=== PATIENT | female | born 1985 | race Caucasian/White ===

== ENCOUNTER 2023-12-15 09:33 | Emergency (ER) | payer OTHER, SELFPAY ==
[2023-12-15 09:42] VITALS: BP 127/84
[2023-12-15 10:45] VITALS: BMI 24.2
[2023-12-15 10:47] VITALS: BP 130/96
[2023-12-15 11:00] VITALS: BP 140/80
--- NOTE | 2023-12-15 11:12 | ED.GENMED ---
History of Present Illness
General
Chief Complaint: Headache
Time Seen by Provider: 12/15/23 10:32
Travel History
Have you had any contact with someone who has COVID-19?: No
Do you have any symptoms of coronavirus? Fever > 100 degrees, chills, cough, shortness of breath, sore throat, loss of taste or smell, muscle aches, or headache?: No
History of Present Illness
History of Present Illness:
38-year-old female with history of anxiety, POTS, thoracic outlet syndrome, and GERD presents to the emergency department for evaluation of a litany of symptoms. Patient notes that since Thursday she has had episodes of vomiting, syncope, headaches,
increased defecation, physical feeling of trembling on the inside, hot and cold chills, sweating, irritability, word finding difficulty, confusion, 'feeling disconnected', muscle weakness, excessive fatigue, bad body odor, and a fullness in her ears
and head. She states that she has PTSD and had a 'bad weekend'. Denies any fever or sick contacts at home.
Past History
Past History
ED Past Medical History: Asthma (Sport induced), Fibromyalgia, GERD, Seizures (Pseudoseizures), Psychiatric (panic attacks, anxiety disorder, PTSD, Pleurasy), Other (pseudoseizures, headaches, Barrets esophagitis, Gastritis, Scoliosis,
Endometriosis, 'dormant' Lymes disease, chronic pelvic pain, Pyelonephritis, Hiatal hernia, Sarah, ) and Other (Thoracic outlet syndrome, Hiatal hernia, UTi, Cystitis)
ED Past Surgical History: Appendectomy, Gynecological (Laparoscopy 07/12/2014, Endometriiosis Surgery X 2) and Tonsilectomy
Social History
Tobacco: Former smoker
Alcohol: None
Drug: None
Personal:
Living: with family
Employment: Not employed
Family History
Family History: Other (states had grandparents with heart problems in their 50's)
Review of Systems
Review of Systems
Allergies reviewed?: Yes
All Other Systems: ROS reviewed and negative except as documented in HPI and ROS
Phy Exam
Physical Exam
Physical Exam:
GEN: Well appearing, NAD, WDWN
HEENT: Oral mucosa moist, no scleral icterus
Cardiac: Regular rate and rhythm, no murmurs
Lung: No respiratory distress, no tachypnea
MSK: No gross deformity or injuries
Skin: Good color, no pallor or jaundice, no rashes
Neuro: AO x3, moves all extremities freely, cranial nerves II through XII grossly intact
Psych: Calm, cooperative
Course
Orders/Labs/Results
Orders:
Orders
12/15/23 09:46
Electrocardiogram (*1) Urgent
Reason for Study: Vertigo / Dizzy
EKG- Treatment ONCE
12/15/23 11:11
0.9% Sodium Chloride 1000 ml [Nss] 1,000 ml IV BOLUS
Lorazepam [Ativan] 0.5 mg IV NOW STA
12/15/23 11:12
Test Result ONCE
12/15/23 12:13
Complete Blood Count/With Diff Urgent
Comprehensive Metabolic Panel Urgent
HCG, Serum Qualitative Screen Urgent
TSH Urgent
Urinalysis Reflex To Culture Urgent
Date Specimen was Collected: 12/15/23
Time Specimen was Collected: 11:45
12/15/23 12:15
COVID-19 Antigen Urgent
Source: Nasal Swab
Abnormal Lab Results
12/15/23
12:13
RBC 4.16 L 10^6/uL
(4.20-5.40)
MCH 32.9 H pg
(27.0-31.0)
Absolute Neuts (auto) 6.9 H 10^3/uL
(1.4-6.5)
Neutrophils % 79.6 H %
(42.2-75.2)
Lymphocytes % 15.5 L %
(20.5-51.1)
Creatinine 0.5 L mg/dL
(0.6-1.0)
Glucose 109 H mg/dl
(70-99)
12/15/23 12:13
12/15/23 12:13
Vital Signs
Initial and Last Documented VS:
Initial Vital Signs
Temp Pulse Resp BP Pulse Ox
98.2 F 77 20 127/84 99
12/15/23 09:42 12/15/23 09:42 12/15/23 09:42 12/15/23 09:42 12/15/23 09:42
Last Documented Vital Signs
Temp Pulse Resp BP Pulse Ox
98.2 F 81 16 136/72 97
12/15/23 09:42 12/15/23 13:37 12/15/23 13:37 12/15/23 13:37 12/15/23 13:37
MDM/Problems Addressed
MDM/Problems Addressed:
Patient presenting with a myriad of complaints, her workup was unremarkable, I suspect this is all anxiety driven, patient reassured
Comment
Comment:
EKG independently interpreted by me shows normal sinus rhythm at a rate of [address] changes concerning for ischemia
*Critical Care Note
Total Time (30-74mins, 75-104mins- exclusive of procedures): Not Applicable
ED Attending Note
-
Portions of this chart may have been created with voice recognition software.� Occasional wrong word or��sound alike� substitutions may have occurred due to the inherent limitations of voice recognition software.
Discharge Plan
Departure
Patient Disposition: Home (Routine Discharge)
Date of Disposition: 12/15/23
Time of Disposition: 13:02
Patient with high blood pressure during this ER visit?: No
Discharge Problem:
Persistent headaches, Night sweats, Anxiety
Instructions: Headache, Adult (DC)
Prescriptions:
No Action
omeprazole 20 mg capsule,delayed release(DR/EC)
40 mg PO DAILY
carisoprodol 350 mg tablet
350 mg PO QID
Patient Comments:
03/26/2023: last filled 03/26/2023, 90 tabs for 23 days from [facility]
Rx Instructions:
3 times a day and at bedtime
hydrocodone-acetaminophen 5-325 mg tablet
1 tab PO TID PRN (Reason: moderate pain)
Patient Comments:
03/26/2023: last filled 02/27/23, 90 tabs for 30 days from [facility]
alprazolam 0.5 mg tablet
0.5 mg PO TID PRN (Reason: anxiety)
Patient Comments:
03/26/2023: last filled 03/20/23, 84 tabs for 28 days from [facility]
diclofenac sodium 50 mg tablet,delayed release (DR/EC)
50 mg PO QID
hydroxychloroquine 200 mg tablet
200 mg PO BID
duloxetine 60 mg capsule,delayed release(DR/EC)
120 mg PO DAILY
amphetamine sulfate 10 mg tablet
10 mg PO DAILY
Patient Comments:
03/26/2023: last filled 03/23/23, 45 tabs for 30 days from [facility]
amphetamine sulfate 10 mg tablet
5 mg PO DAILY@1400
Patient Comments:
03/26/2023: last filled 03/23/23, 45 tabs for 30 days from [facility]
Rx Instructions:
1/2 tab in the afternoon
acetaminophen [Acetaminophen Extra Strength] 500 mg tablet
1,000 mg PO TID PRN (Reason: headache) 30 Days Qty: 90 0RF
prochlorperazine maleate [Compazine] 10 mg tablet
10 mg PO TID PRN (Reason: nausea/headache) Qty: 90 0RF
prednisone 10 mg tablet
10 mg PO DIRECTED Qty: 30 0RF
Rx Instructions:
50mg x 2 days, 40mg x 2 days, 30mg x 2 days, 20mg x 2 days, 10mg x 2 days
Referrals:
UNKNOWN,NO INTERVIEW [Family Provider] -
Activity Restrictions/Additional Instructions:
Follow up with your primary care doctor if symptoms persist
Interventions
Interventions:
*Risk Screen - Suicide Last Done: 12/15/23 10:45
*General Assessment Last Done: 12/15/23 10:45
*Neglect/Abuse Screening Last Done: 12/15/23 10:45
ED- Fall Risk Assessment Last Done: 12/15/23 13:37
*ED COVID-19 Vaccine History Last Done: 12/15/23 10:45
*Nursing Disposition Last Done: 12/15/23 13:37
ED- Neurological Assessment Last Done: 12/15/23 10:45
Discharge Date and Time
Discharge Date/Time: 12/15/23 13:39
[2023-12-15] MEDS: NSS 1000 IV (12:17)
[2023-12-15 12:26] LABS: % Basophils 0.3 % (0-2); % Eosinophils 0.2 % (0-6); % Immature Granulocytes 0.3 % (0-0.5); % Lymphocytes 15.5 % (20.5-51.1); % Monocytes 4.1 % (1.7-9.3); % Neutrophils 79.6 % (42.2-75.2); Absolute Lymphocytes 1.4 10^3/uL (1.2-3.4); Absolute Monocytes 0.4 10^3/uL (0.1-0.6); Absolute Neutrophils 6.9 10^3/uL (1.4-6.5); Hematocrit 38.2 % (37.0-47.0); Hemoglobin 13.7 g/dL (12.0-16.0); Mean Corp Hgb Conc. 35.9 g/dL (33.0-37.0); Mean Corpuscular Hgb 32.9 pg (27.0-31.0); Mean Corpuscular Volume 91.8 fL (81.0-99.0); Nucleated Red Blood Cells % 0 %; Platelet Count 297 10^3/uL (130-400); Red Blood Cell Count 4.16 10^6/uL (4.20-5.40); Red Cell Dist. Width 11.6 % (11.5-14.5); White Blood Cell Count 8.7 10^3/uL (4.8-10.8)
[2023-12-15 12:28] LABS: Urine Albumin Negative (Neg - Trace); Urine Bilirubin Negative (Negative); Urine Character Clear (Clear); Urine Color Straw; Urine Glucose Negative (Negative); Urine Ketone Negative (Negative); Urine Leukocyte Negative (Negative); Urine Nitrite Negative (Negative); Urine Occult Blood Negative (Negative); Urine Urobilinogen Negative (Neg - 1+); Urine pH 6.5 (5.0-9.0)
[2023-12-15 12:40] LABS: COVID-19 Antigen Negative (Negative)
[2023-12-15 12:41] LABS: ALT (SGPT) 25 U/L (0-35); AST (SGOT) 29 U/L (14-36); Albumin 4.6 g/dl (3.5-5.0); Alkaline Phosphatase 38 U/L (38-126); Blood Urea Nitrogen 9 mg/dl (7-17); Calcium 9.8 mg/dl (8.4-10.2); Carbon Dioxide 26 mmol/L (22-30); Chloride 100 mmol/L (98-107); Estimated Creatinine Clearance 117 ml/min; Glucose 109 mg/dl (70-99); Potassium 4.2 mmol/L (3.5-5.1); Sodium 137 mmol/L (135-145); Total Bilirubin 0.9 mg/dl (0.2-1.3); Total Protein 7.4 g/dl (6.3-8.2); eGFR > 60.00
[2023-12-15 12:44] LABS: HCG, Serum Qualitative Screen Negative
[2023-12-15 13:37] VITALS: BP 136/72
== END 2023-12-15 13:39 | disposition home or self-care (01) ==
LOC: EMR 09:33
PROVIDERS: Physician Assistant; EMERGENCY PHYSICIAN Emergency Medicine
DX: R51.9 Headache, unspecified (principal); R61 Generalized hyperhidrosis; F41.9 Anxiety disorder, unspecified; R11.2 Nausea with vomiting, unspecified; R55 Syncope and collapse; G90.A Postural orthostatic tachycardia syndrome [POTS]; G54.0 Brachial plexus disorders; K21.00 Gastro-esophageal reflux disease with esophagitis, without bleeding; F43.10 Post-traumatic stress disorder, unspecified; J45.909 Unspecified asthma, uncomplicated; M41.9 Scoliosis, unspecified; M79.7 Fibromyalgia; Z87.19 Personal history of other diseases of the digestive system; Z87.440 Personal history of urinary (tract) infections; Z87.891 Personal history of nicotine dependence; Z90.49 Acquired absence of other specified parts of digestive tract
CPT/HCPCS: 99283; 96360; 80053; 81003; 84443; 84703; 85025; 87811; 93005

== ENCOUNTER 2024-04-10 18:45 | Emergency (ER) | payer OTHER, SELFPAY ==
[2024-04-10 18:50] VITALS: BP 144/92; BMI 25.0
[2024-04-10 19:15] LABS: % Basophils 0.3 % (0-2); % Eosinophils 0.2 % (0-6); % Immature Granulocytes 0.7 % (0-0.5); % Lymphocytes 19.4 % (20.5-51.1); % Monocytes 4.3 % (1.7-9.3); % Neutrophils 75.1 % (42.2-75.2); Absolute Immature Granulocytes 0.1 10^3/uL (0-0.05); Absolute Lymphocytes 1.9 10^3/uL (1.2-3.4); Absolute Monocytes 0.4 10^3/uL (0.1-0.6); Absolute Neutrophils 7.4 10^3/uL (1.4-6.5); Hematocrit 38.4 % (37.0-47.0); Hemoglobin 13.3 g/dL (12.0-16.0); Mean Corp Hgb Conc. 34.6 g/dL (33.0-37.0); Mean Corpuscular Hgb 32.3 pg (27.0-31.0); Mean Corpuscular Volume 93.2 fL (81.0-99.0); Mean Platelet Volume 8.1 fL (7.4-10.4); Nucleated Red Blood Cells % 0 %; Platelet Count 401 10^3/uL (130-400); Red Blood Cell Count 4.12 10^6/uL (4.20-5.40); White Blood Cell Count 9.9 10^3/uL (4.8-10.8)
[2024-04-10 19:16] LABS: Urine Albumin Negative (Neg - Trace); Urine Bilirubin Negative (Negative); Urine Character Clear (Clear); Urine Color Straw; Urine Glucose Negative (Negative); Urine Ketone Negative (Negative); Urine Leukocyte Negative (Negative); Urine Nitrite Negative (Negative); Urine Occult Blood Negative (Negative); Urine Urobilinogen Negative (Neg - 1+)
[2024-04-10 19:26] LABS: HCG, Serum Qualitative Screen Negative
[2024-04-10 19:29] LABS: ALT (SGPT) 45 U/L (0-35); AST (SGOT) 20 U/L (14-36); Albumin 4.4 g/dl (3.5-5.0); Alkaline Phosphatase 37 U/L (38-126); Blood Urea Nitrogen 13 mg/dl (7-17); Carbon Dioxide 35 mmol/L (22-30); Chloride 97 mmol/L (98-107); Estimated Creatinine Clearance 117 ml/min; Glucose 114 mg/dl (70-99); Lipase 205 U/L (23-300); Potassium 4.8 mmol/L (3.5-5.1); Sodium 137 mmol/L (135-145); Total Bilirubin 0.2 mg/dl (0.2-1.3); eGFR > 60.00
[2024-04-10 19:31] VITALS: BP 126/77
[2024-04-10 19:40] LABS: Troponin I < 0.012 ng/ml
[2024-04-10 20:00] VITALS: BP 127/79
--- NOTE | 2024-04-10 20:21 | ED.GENMED ---
History of Present Illness
General
Chief Complaint: Urinary Symptoms
Source: patient
Exam Limitations: none
Time Seen by Provider: 04/10/24 19:22
Travel History
Have you had any contact with someone who has COVID-19?: No
Do you have any symptoms of coronavirus? Fever > 100 degrees, chills, cough, shortness of breath, sore throat, loss of taste or smell, muscle aches, or headache?: No
History of Present Illness
History of Present Illness:
This is a 38 year old female that comes in with multiple complaints. States that she has cystitis and she can't tell sometimes between her Cystitis or a Lupus flare. State that today she couldn't walk up the stairs as this caused her to be SOB.
States that she was sweating and she felt she was having a hard time emptying her bladder. States that she was nauseated but not vomiting. States that she has upper chest pain into the right shoulder with the SOB, headache and slight dizziness.
Denies any fever, chills, vomiting, diarrhea, urinary burning.
Past History
Past History
ED Past Medical History: Asthma (Sport induced), Fibromyalgia, GERD, Hypercholesterolemia, Seizures (Pseudoseizures), Psychiatric (panic attacks, anxiety disorder, PTSD,), Other (pseudoseizures, headaches, Barretts esophagitis, Gastritis, Scoliosis,
Endometriosis, 'dormant' Lyme's disease, chronic pelvic pain, Pyelonephritis, Hiatal hernia, Sarah, ) and Other (Thoracic outlet syndrome, Hiatal hernia, UTi, Cystitis, Optic neuritis, Pleurisy, Lupus)
ED Past Surgical History: Appendectomy, Gynecological (Laparoscopy 07/12/2014, Endometriiosis Surgery X 2), Tonsilectomy and Other (Sinus surgery)
Social History
Tobacco: Former smoker
Alcohol: None
Drug: None
Personal:
Living: with family
Employment: Not employed
Family History
Family History: Other (states had grandparents with heart problems in their 50's)
Review of Systems
Review of Systems
All Other Systems: ROS reviewed and negative except as documented in HPI and ROS
Constitutional: Reports no symptoms; Denies fever or chills
EENT: Reports no symptoms
Respiratory: Reports trouble breathing; Denies cough
Cardiac: Reports chest pain
ABD/GI: Reports abdominal pain and nausea; Denies vomiting or diarrhea
: Reports no symptoms; Denies dysuria, frequency or urgency
Musculoskeletal: Reports no symptoms
Skin: Reports no symptoms
Neurological: Reports dizzy (Slight) and headache
Psychiatric: Reports no symptoms
Phy Exam
General Physical Exam
General Presentation: mild distress
General age: appears stated age
General Skin: warm and dry
General Habitus: normal
General Mental: alert
General Hydration: appears well hydrated
ENT Exam
ENT Exam: TM's normal, pharynx normal and neck supple
Eye Exam
Eye Exam: EOMI
Cardiovascular Exam
Cardiovascular Exam: regular rate/rhythm, no edema, no murmur and normal peripheral pulses
Pulmonary Exam
Pulmonary Exam: lungs clear, no respiratory distress, no rales, chest non tender, no crackles, no rhonchi, no wheezing and no cough
Gastrointestinal Exam
Gastrointestinal Exam: normal bowel sounds, soft, no organomegaly, no pulsatile mass, non distended and tender (Slight abd tenderness with palpation generalized)
Musculoskeletal Exam
Musculoskeletal Exam: full ROM and no edema
Skin Exam
Skin Exam: normal color, warm/dry, no rash and no petechia
Psychiatric Exam
Psychiatric Exam: normal mood/affect
Course
Orders/Labs/Results
Orders:
Orders
04/10/24 18:53
Electrocardiogram (*1) Urgent
Reason for Study: Abdominal Pain
04/10/24 18:54
EKG- Treatment ONCE
Test Result ONCE
04/10/24 18:58
Urinalysis Reflex To Culture Urgent
Date Specimen was Collected: 04/10/24
Time Specimen was Collected: 18:53
04/10/24 19:07
Complete Blood Count/With Diff Urgent
Comprehensive Metabolic Panel Urgent
HCG, Serum Qualitative Screen Urgent
Lipase Urgent
Troponin I Urgent
04/10/24 20:19
0.9% Sodium Chloride 1000 ml [Nss] 1,000 ml IV BOLUS
Acetaminophen [Tylenol] 1,000 mg PO NOW STA
Ketorolac [Toradol] 30 mg IV NOW STA
Ondansetron Injectable [Zofran] 4 mg IV NOW STA
04/10/24 20:20
CR Chest - 2 Views Urgent
Comment:
Reason For Exam: SOB
04/10/24 20:23
Bladder Scan- Treatment ONCE
Comment: after patient voids
04/10/24 20:[address] Non Medication Order As Directed
Physician Order: Bladder scan after patient voids
Above order entered?: Yes
Abnormal Lab Results
04/10/24
19:07
RBC 4.12 L 10^6/uL
(4.20-5.40)
MCH 32.3 H pg
(27.0-31.0)
Plt Count 401 H 10^3/uL
(130-400)
Abs Immat Gran (auto) 0.1 H 10^3/uL
(0-0.05)
Absolute Neuts (auto) 7.4 H 10^3/uL
(1.4-6.5)
Immature Gran % 0.7 H %
(0-0.5)
Lymphocytes % 19.4 L %
(20.5-51.1)
Chloride 97 L mmol/L
(98-107)
Carbon Dioxide 35 H mmol/L
(22-30)
Glucose 114 H mg/dl
(70-99)
ALT 45 H U/L
(0-35)
Alkaline Phosphatase 37 L U/L
(38-126)
04/10/24 19:07
04/10/24 19:07
Carbon dioxide elevation. Glucose nonfasting. ALT mildly elevated. Urine negative for infection. Lipase normal at 205, HCG negative.
Vital Signs
Initial and Last Documented VS:
Initial Vital Signs
Temp Pulse Resp BP Pulse Ox
98.2 F 94 16 144/92 100
04/10/24 18:50 04/10/24 18:50 04/10/24 18:50 04/10/24 18:50 04/10/24 18:50
Last Documented Vital Signs
Temp Pulse Resp BP Pulse Ox
98.2 F 94 16 144/92 100
04/10/24 18:50 04/10/24 18:50 04/10/24 18:50 04/10/24 18:50 04/10/24 18:50
Hot Box Checker consulted with Physician
Hot Box Checker consulted with physician?: Yes
Name of Physician Consulted: Dr. Nuñez
MDM/Problems Addressed
Differential Diagnosis Includes:
Migraine, gastritis,
MDM/Problems Addressed:
This is a 38 year old female that comes in with multiple complaints. States that she was SOB going up the steps today and had upper right sided chest pain. States that she has abd pain with nausea, headache and dizziness.
Will check labs, Chest x-ray urine, Give IV fluids.
Back into see patient. Patient states that she is not feeling much better. Explained that her chest x-ray is normal, urine is negative for infection and her blood work does show a slight Elevation of C02. Encouraged patient to take deep breaths to
help blow off the C02, increase her water intake to 8-8oz glasses daily. Follow up with the family doctor. Return with any concerns.
Chronic conditions affecting care:
Lupus, Cystitis
Acute Exacerbation and/or Progression of Chronic Illness:
Lupus, Cystitis
*Radiology
Radiology exam reviewed: radiology read reviewed (Chest-No acute disease of the chest. )
*Pulse Oximetry
Patient hypoxic: no
*EKG
Interpreted by ED Provider?: Yes
Heart Rate: 81
Rate: normal
Rhythm: sinus
[place]: normal axis
Interval: normal interval
QRS Pattern: normal QRS
Ischemia: no ischemia
*Warehouse Team Member Interpretation
Rate: Warehouse Team Member- N/A
*Critical Care Note
Total Time (30-74mins, 75-104mins- exclusive of procedures): Not Applicable
ED Attending Note
-
Portions of this chart may have been created with voice recognition software.� Occasional wrong word or��sound alike� substitutions may have occurred due to the inherent limitations of voice recognition software.
Discharge Plan
Departure
Patient Disposition: Home (Routine Discharge)
Date of Disposition: 04/10/24
Time of Disposition: 22:09
Patient with high blood pressure during this ER visit?: Yes
Condition: Good
Covid-19: Not Applicable
Discharge Problem:
SOB (shortness of breath)
Instructions: Shortness of Breath, Adult ED, BLOOD PRESSURE
Prescriptions:
No Action
omeprazole 20 mg capsule,delayed release(DR/EC)
40 mg PO DAILY
carisoprodol 350 mg tablet
350 mg PO QID
Patient Comments:
03/26/2023: last filled 03/26/2023, 90 tabs for 23 days from [facility]
Rx Instructions:
3 times a day and at bedtime
hydrocodone-acetaminophen 5-325 mg tablet
1 tab PO TID PRN (Reason: moderate pain)
Patient Comments:
03/26/2023: last filled 02/27/23, 90 tabs for 30 days from [facility]
alprazolam 0.5 mg tablet
0.5 mg PO TID PRN (Reason: anxiety)
Patient Comments:
03/26/2023: last filled 03/20/23, 84 tabs for 28 days from [facility]
diclofenac sodium 50 mg tablet,delayed release (DR/EC)
50 mg PO QID
hydroxychloroquine 200 mg tablet
200 mg PO BID
duloxetine 60 mg capsule,delayed release(DR/EC)
120 mg PO DAILY
amphetamine sulfate 10 mg tablet
10 mg PO DAILY
Patient Comments:
03/26/2023: last filled 03/23/23, 45 tabs for 30 days from [facility]
amphetamine sulfate 10 mg tablet
5 mg PO DAILY@1400
Patient Comments:
03/26/2023: last filled 03/23/23, 45 tabs for 30 days from [facility]
Rx Instructions:
1/2 tab in the afternoon
acetaminophen [Acetaminophen Extra Strength] 500 mg tablet
1,000 mg PO TID PRN (Reason: headache) 30 Days Qty: 90 0RF
prochlorperazine maleate [Compazine] 10 mg tablet
10 mg PO TID PRN (Reason: nausea/headache) Qty: 90 0RF
prednisone 10 mg tablet
10 mg PO DIRECTED Qty: 30 0RF
Rx Instructions:
50mg x 2 days, 40mg x 2 days, 30mg x 2 days, 20mg x 2 days, 10mg x 2 days
Referrals:
Janey Collins, DO [Family Provider] -
Activity Restrictions/Additional Instructions:
As discussed, your chest X-ray is normal. Your urine is negative for infection. Your Troponin is normal. Please increase your water intake to 8-8oz glasses daily. Please take deep breaths to help open up the air ways. Follow up with the family
doctor for recheck. Tylenol 1000mg every 6 hours for headache pain and alternate with Ibuprofen 600mg every 6 hours with food for pain. IF YOU HAVE ANY OTHER CONCERNS PLEASE RETURN TO THE EMERGENCY ROOM .
Interventions
Interventions:
*Risk Screen - Suicide Last Done: 04/10/24 18:50
*Neglect/Abuse Screening Last Done: 04/10/24 18:50
ED- Fall Risk Assessment Last Done: 04/10/24 18:50
Discharge Date and Time
Print Language: FRISIAN
[2024-04-10] MEDS: NSS 1000 IV (20:52)
[2024-04-10] MEDS: TORADOL 30 MG IV (20:53)
[2024-04-10] MEDS: TYLENOL 1000 MG PO (20:53)
[2024-04-10] MEDS: ZOFRAN 4 MG IV (20:53)
[2024-04-10 21:30] VITALS: BP 117/81
== END 2024-04-10 22:45 | disposition home or self-care (01) ==
LOC: EMR 18:45
PROVIDERS: Emergency Medicine; EMERGENCY PHYSICIAN Student in an Organized Health Care Education/Training Program; FAMILY PHYSICIAN Internal Medicine
DX: R06.02 Shortness of breath (principal); J45.909 Unspecified asthma, uncomplicated; M79.7 Fibromyalgia; K21.9 Gastro-esophageal reflux disease without esophagitis; E78.00 Pure hypercholesterolemia, unspecified; G40.909 Epilepsy, unspecified, not intractable, without status epilepticus; F41.9 Anxiety disorder, unspecified; M41.9 Scoliosis, unspecified; G54.0 Brachial plexus disorders; Z87.19 Personal history of other diseases of the digestive system; Z87.440 Personal history of urinary (tract) infections; Z87.891 Personal history of nicotine dependence; Z90.49 Acquired absence of other specified parts of digestive tract
CPT/HCPCS: 99283; 96374; 96375; 96361; 71046; 80053; 81003; 83690; 84484; 84703; 85025; 93005

== ENCOUNTER 2024-05-31 15:41 | Emergency (ER) | payer OTHER, SELFPAY ==
[2024-05-31 15:47] VITALS: BP 125/87
--- NOTE | 2024-05-31 16:48 | ED.GENMED ---
History of Present Illness
General
Chief Complaint: Vaginal Bleeding
Source: patient
Exam Limitations: none
Time Seen by Provider: 05/31/24 16:47
Nursing documentation reviewed up to this point in time: agreed with
History of Present Illness
History of Present Illness:
39-year-old female with history of PTSD, endometriosis, Barlow's esophagus, GERD, POTS, thoracic outlet syndrome, migraines, lupus Premenstrual dysphoric disorder (PMDD) presents with pain across her lower abdomen and low back pain that she
describes as feeling like she is in labor. She states the pain radiates down both her legs. States she feels like she's in labor and 'like I'm going to poop out my uterus.' contacted her CEMENT WORKER doctor at [place], had a transvaginal US this a.m. and
received report from her CEMENT WORKER that it was 'fine.'
States she had 2 episodes diarrhea last night, and 3 episodes today. States she's on antibiotic for past month but doesn't know the name. Last stool 12 p.m.
Under care of pain management at [facility]. Uses Diclofenac, Vicodin 5 mg, Soma and takes Cymbalta.
Denies fever/chills. Has had nausea and states she vomited once today.
States she started vaginal bleeding 4 days ago, 'a little early for my period,' minimal bleeding since then
Past History
Past History
ED Past Medical History: Asthma (Sport induced), Fibromyalgia, GERD, Hypercholesterolemia, Seizures (Pseudoseizures), Psychiatric (panic attacks, anxiety disorder, PTSD,), Other (pseudoseizures, headaches, Barretts esophagitis, Gastritis, Scoliosis,
Endometriosis, 'dormant' Lyme's disease, chronic pelvic pain, Pyelonephritis, Hiatal hernia, Sarah, ) and Other (Thoracic outlet syndrome, Hiatal hernia, UTi, Cystitis, Optic neuritis, Pleurisy, Lupus)
ED Past Surgical History: Appendectomy, Gynecological (Laparoscopy 07/12/2014, Endometriiosis Surgery X 2), Tonsilectomy and Other (Sinus surgery)
Social History
Tobacco: Former smoker
Alcohol: None
Drug: None
Personal:
Living: with family
Employment: Not employed
Family History
Family History: Other (states had grandparents with heart problems in their 50's)
Review of Systems
Review of Systems
Allergies reviewed?: Yes
All Other Systems: ROS reviewed and negative except as documented in HPI and ROS
Constitutional: Denies fever
Respiratory: Denies trouble breathing
Cardiac: Denies chest pain
ABD/GI: Reports abdominal pain, nausea, vomiting and diarrhea; Denies bloody stools or black stools
: Denies dysuria, frequency, difficulty voiding or urgency
Musculoskeletal: Reports no symptoms
Skin: Reports no symptoms
Neurological: Reports no symptoms
Phy Exam
Physical Exam
Physical Exam:
GENERAL: Pacing room, leaning over table, due to abdominal pain radiating down both legs. A&Ox3.
CONSTITUTIONAL: Afebrile.
EYES: PERRL, conjunctivae normal
ENMT: moist mucus membranes, Pharynx nl
RESPIRATORY: Regular respirations, nonlabored, lungs clear.
CARDIOVASCULAR: Regular rate and rhythm, no murmurs, no rubs.
GI: Soft, nontender, normal BS
MUSCULOSKELETAL: Moves with ease. Ambulating around room without difficulty. Well perfused.
SKIN: Warm, dry, pink
PSYCH: Anxious mood and affect. Well kept, interactive and appropriate
NEUROLOGIC: Awake, alert and oriented. No focal neurological deficits
Course
Orders/Labs/Results
Orders:
Orders
05/31/24 16:39
Test Result ONCE
05/31/24 16:46
Complete Blood Count/With Diff Urgent
Comprehensive Metabolic Panel Urgent
HCG, Serum Qualitative Screen Urgent
Urinalysis Reflex To Culture Urgent
Date Specimen was Collected: 05/31/24
Time Specimen was Collected: 16:39
05/31/24 17:25
Iohexol [Omnipaque] See Protocol PO NOW STA
05/31/24 17:26
CT Abd/pel W Iv And Oral Contr Urgent
Comment:
Reason For Exam: generalized abd pain
Ketorolac [Toradol] 15 mg IV NOW STA
05/31/24 17:39
Ondansetron Injectable [Zofran] 4 mg .ROUTE .STK-MED ONE
Ondansetron Injectable [Zofran] 4 mg IV NOW STA
05/31/24 19:21
Bedside Glucose- Treatment ONCE
Abnormal Lab Results
05/31/24
16:46
RBC 4.06 L 10^6/uL
(4.20-5.40)
MCH 33.0 H pg
(27.0-31.0)
Absolute Monos (auto) 0.7 H 10^3/uL
(0.1-0.6)
Monocytes % 9.8 H %
(1.7-9.3)
Glucose 66 L mg/dl
(70-99)
05/31/24 16:46
05/31/24 16:46
Vital Signs
Initial and Last Documented VS:
Initial Vital Signs
Temp Pulse Resp BP Pulse Ox
98.0 F 104 20 125/87 98
05/31/24 15:47 05/31/24 15:47 05/31/24 15:47 05/31/24 15:47 05/31/24 15:47
Last Documented Vital Signs
Temp Pulse Resp BP Pulse Ox
98.0 F 70 20 114/78 99
05/31/24 15:47 05/31/24 18:53 05/31/24 20:00 05/31/24 20:00 05/31/24 20:00
MDM/Problems Addressed
Differential Diagnosis Includes:
Endometriosis, colitis, diverticulitis, UTI, uterine fibroid., kidney stone
MDM/Problems Addressed:
39-year-old female with history of PTSD, endometriosis, Barlow's esophagus, GERD, POTS, thoracic outlet syndrome, migraines, lupus Premenstrual dysphoric disorder (PMDD) presents with pain across her lower abdomen and low back pain that she
describes as feeling like she is in labor. She states the pain radiates down both her legs. States she feels like she's in labor and 'like I'm going to poop out my uterus.' contacted her CEMENT WORKER doctor at [place], had a transvaginal US this a.m. and
received report from her CEMENT WORKER that it was 'fine.'
States she had 2 episodes diarrhea last night, and 3 episodes today. Last stool 12 p.m. States she's on Minocycline 100mg q12h. for past month she states for her Lupus.
Under care of pain management at [facility]. Uses Diclofenac, Vicodin 5 mg, Soma and takes Cymbalta.
Denies fever/chills. Has had nausea and states she vomited once today.
States she started vaginal bleeding 4 days ago, 'a little early for my period,' minimal bleeding since then
Pt OOB leaning forward on bedside table she states due to pain.
Although she is saying significant lower abdominal and low back pain, she denies pain with deep palpation to abdomen
5:30 PM
Voiced concern for a kidney stone, or maybe it's something with my bowels. Not likely kidney stone pain is bilateral and U/A is neg
CBC normal
CMP normal
HCG neg
Informed of normal labs
She's had numerous imaging studies here the years and most likely at other places too.
Still pacing and rubbing her abdomen now says: 'I wonder if it's something in my bowels.?'
Explained the risk of developing radiation induced malignancy due to having numerous imaging over the years. 'well how are we going to find out what's wrong?' She wants to proceed with CT scan
8:00 p.m.:
Ct abd pelvis with IV and oral contrast: Radiology report read: No CT evidence for an acute process in the abdomen or pelvis.
Patient informed of normal workup here
She is lying in bed appearing comfortable, she states her abdominal pain is much better, she has spoken with her CEMENT WORKER doctor while she was here and she will follow-up with her CEMENT WORKER doc
*Critical Care Note
Total Time (30-74mins, 75-104mins- exclusive of procedures): Not Applicable
ED Attending Note
-
Portions of this chart may have been created with voice recognition software.� Occasional wrong word or��sound alike� substitutions may have occurred due to the inherent limitations of voice recognition software.
Discharge Plan
Departure
Patient Disposition: Home (Routine Discharge)
Date of Disposition: 05/31/24
Time of Disposition: 20:12
Patient with high blood pressure during this ER visit?: No
Condition: Good
Discharge Problem:
Abdominal pain
Instructions: Abdominal Pain, Adult ED
Prescriptions:
No Action
omeprazole 20 mg capsule,delayed release(DR/EC)
40 mg PO DAILY
carisoprodol 350 mg tablet
350 mg PO QID
Patient Comments:
03/26/2023: last filled 03/26/2023, 90 tabs for 23 days from [facility]
Rx Instructions:
3 times a day and at bedtime
hydrocodone-acetaminophen 5-325 mg tablet
1 tab PO TID PRN (Reason: moderate pain)
Patient Comments:
03/26/2023: last filled 02/27/23, 90 tabs for 30 days from [facility]
diclofenac sodium 50 mg tablet,delayed release (DR/EC)
50 mg PO TID
duloxetine 60 mg capsule,delayed release(DR/EC)
60 mg PO DAILY
amphetamine sulfate 10 mg tablet
10 mg PO DAILY
Patient Comments:
03/26/2023: last filled 03/23/23, 45 tabs for 30 days from [facility]
amphetamine sulfate 10 mg tablet
5 mg PO DAILY@1400
Patient Comments:
03/26/2023: last filled 03/23/23, 45 tabs for 30 days from [facility]
Rx Instructions:
1/2 tab in the afternoon
acetaminophen [Acetaminophen Extra Strength] 500 mg tablet
1,000 mg PO TID PRN (Reason: headache) 30 Days Qty: 90 0RF
prednisone 10 mg tablet
10 mg PO DIRECTED Qty: 30 0RF
Rx Instructions:
50mg x 2 days, 40mg x 2 days, 30mg x 2 days, 20mg x 2 days, 10mg x 2 days
minocycline 100 mg Capsule
100 mg PO BID
Referrals:
Your, CEMENT WORKER doctor [Other] - Call in 1-3 days for appt
Janey Collins, DO [Family Provider] - As needed
Activity Restrictions/Additional Instructions:
As we discussed, nothing in your workup here today shows anything worrisome.
Follow up with your CEMENT WORKER doctor as you discussed with her
Interventions
Interventions:
*Risk Screen - Suicide Last Done: 05/31/24 16:54
*General Assessment Last Done: 05/31/24 19:15
*Neglect/Abuse Screening Last Done: 05/31/24 16:54
ED- Fall Risk Assessment Last Done: 05/31/24 19:18
*ED COVID-19 Vaccine History Last Done: 05/31/24 19:15
*Nursing Disposition Last Done: 05/31/24 20:45
ED-Female Genitourinary Assessment Last Done: 05/31/24 19:18
Discharge Date and Time
Discharge Date/Time: 05/31/24 20:46
Print Language: BAHRAINI
[2024-05-31 16:59] LABS: % Eosinophils 2.2 % (0-6); % Immature Granulocytes 0.3 % (0-0.5); % Lymphocytes 35.4 % (20.5-51.1); % Monocytes 9.8 % (1.7-9.3); % Neutrophils 51.3 % (42.2-75.2); Absolute Basophils 0.1 10^3/uL (0-0.2); Absolute Eosinophils 0.2 10^3/uL (0-0.7); Absolute Lymphocytes 2.4 10^3/uL (1.2-3.4); Absolute Monocytes 0.7 10^3/uL (0.1-0.6); Absolute Neutrophils 3.5 10^3/uL (1.4-6.5); Hematocrit 38.3 % (37.0-47.0); Hemoglobin 13.4 g/dL (12.0-16.0); Mean Corpuscular Volume 94.3 fL (81.0-99.0); Mean Platelet Volume 9.1 fL (7.4-10.4); Nucleated Red Blood Cells % 0 %; Platelet Count 337 10^3/uL (130-400); Red Blood Cell Count 4.06 10^6/uL (4.20-5.40); Red Cell Dist. Width 11.7 % (11.5-14.5); White Blood Cell Count 6.8 10^3/uL (4.8-10.8)
[2024-05-31 17:13] LABS: HCG, Serum Qualitative Screen Negative; Urine Albumin Negative (Neg - Trace); Urine Bilirubin Negative (Negative); Urine Character Clear (Clear); Urine Color Yellow; Urine Glucose Negative (Negative); Urine Ketone Negative (Negative); Urine Leukocyte Negative (Negative); Urine Nitrite Negative (Negative); Urine Occult Blood Negative (Negative); Urine Urobilinogen Negative (Neg - 1+)
[2024-05-31 17:16] LABS: ALT (SGPT) 21 U/L (0-35); AST (SGOT) 30 U/L (14-36); Albumin 4.7 g/dl (3.5-5.0); Alkaline Phosphatase 47 U/L (38-126); Blood Urea Nitrogen 13 mg/dl (7-17); Calcium 9.8 mg/dl (8.4-10.2); Carbon Dioxide 24 mmol/L (22-30); Chloride 104 mmol/L (98-107); Glucose 66 mg/dl (70-99); Potassium 4.4 mmol/L (3.5-5.1); Sodium 138 mmol/L (135-145); Total Bilirubin 0.4 mg/dl (0.2-1.3); Total Protein 7.3 g/dl (6.3-8.2); eGFR > 60.00
[2024-05-31] MEDS: OMNIPAQUE 50 ML PO (17:31)
[2024-05-31] MEDS: TORADOL 15 MG IV (17:32)
[2024-05-31] MEDS: ZOFRAN 4 MG IV (17:40)
[2024-05-31 18:53] VITALS: BP 107/80
[2024-05-31 18:56] VITALS: BMI 24.2
[2024-05-31 19:10] VITALS: BP 117/76
[2024-05-31 19:26] LABS: Glucose - Point of Care 78 mg/dl (70-99)
[2024-05-31 19:56] VITALS: BP 115/75
[2024-05-31 20:00] VITALS: BP 114/78
== END 2024-05-31 20:46 | disposition home or self-care (01) ==
LOC: EMR 15:41
PROVIDERS: EMERGENCY PHYSICIAN Emergency Medicine; FAMILY PHYSICIAN Internal Medicine
DX: R10.30 Lower abdominal pain, unspecified (principal); F43.10 Post-traumatic stress disorder, unspecified; F32.81 Premenstrual dysphoric disorder; E78.00 Pure hypercholesterolemia, unspecified; Z87.891 Personal history of nicotine dependence
CPT/HCPCS: 99285; 96374; 96375; 74177; 80053; 81003; 82962; 84703; 85025; Q9967

== ENCOUNTER 2024-06-10 14:48 | Emergency (ER) | payer OTHER, SELFPAY ==
[2024-06-10 15:03] VITALS: BP 156/89
[2024-06-10 15:43] LABS: % Basophils 0.9 % (0-2); % Eosinophils 2.5 % (0-6); % Immature Granulocytes 0.1 % (0-0.5); % Lymphocytes 40.5 % (20.5-51.1); % Monocytes 9.1 % (1.7-9.3); % Neutrophils 46.9 % (42.2-75.2); Absolute Basophils 0.1 10^3/uL (0-0.2); Absolute Eosinophils 0.2 10^3/uL (0-0.7); Absolute Lymphocytes 3.2 10^3/uL (1.2-3.4); Absolute Monocytes 0.7 10^3/uL (0.1-0.6); Absolute Neutrophils 3.7 10^3/uL (1.4-6.5); Hematocrit 41.6 % (37.0-47.0); Hemoglobin 14.2 g/dL (12.0-16.0); Mean Corp Hgb Conc. 34.1 g/dL (33.0-37.0); Mean Corpuscular Hgb 32.1 pg (27.0-31.0); Mean Corpuscular Volume 93.9 fL (81.0-99.0); Mean Platelet Volume 9.1 fL (7.4-10.4); Nucleated Red Blood Cells % 0 %; Platelet Count 417 10^3/uL (130-400); Red Blood Cell Count 4.43 10^6/uL (4.20-5.40); Red Cell Dist. Width 11.9 % (11.5-14.5)
[2024-06-10 15:47] LABS: ALT (SGPT) 20 U/L (0-35); AST (SGOT) 22 U/L (14-36); Albumin 5.1 g/dl (3.5-5.0); Alkaline Phosphatase 45 U/L (38-126); Blood Urea Nitrogen 13 mg/dl (7-17); Calcium 9.6 mg/dl (8.4-10.2); Carbon Dioxide 26 mmol/L (22-30); Chloride 102 mmol/L (98-107); Glucose 99 mg/dl (70-99); Potassium 4.9 mmol/L (3.5-5.1); Sodium 138 mmol/L (135-145); Total Bilirubin 0.5 mg/dl (0.2-1.3); Total Protein 7.7 g/dl (6.3-8.2); eGFR > 60.00
[2024-06-10 17:50] VITALS: BP 148/88
--- NOTE | 2024-06-10 17:59 | ED.GENMED ---
Addendum entered and electronically signed by James Wesley DO 06/10/24 21:30:
s/o pending arterial studies
studies neg per vascular sx
dw patient
she has chronic leg pain, chronic abd pain
apparently has had pseudoseizures, pots, endometriosis
PDMP noted
I see no indication for admission
Original Note:
History of Present Illness
General
Chief Complaint: Musculo-Skeletal Complaint
Time Seen by Provider: 06/10/24 17:40
History of Present Illness
History of Present Illness:
Patient is a 39-year-old woman with history of PTSD, endometriosis, GERD esophagus, POTS, lupus presenting to the emergency department with leg pain. Patient states that she was seen here last week for belly pain and back pain and was sent home
without a diagnosis. Per chart review it appears that patient had a full workup done including blood work urine CT scans. She states that the pain is now worse in her entire left leg. Denies any recent trauma. She states that it is throughout
the anterior and posterior leg. It is worse with ambulation. She does state that sometimes the leg appears discolored especially in the foot. This does not feel like a typical lupus flare. She denies any numbness tingling. No weakness. Any
movement makes the pain worse. No rashes. No tick bites. She has been ambulating. No fevers or chills. No urinary symptoms. No back pain. No belly pain. She has been taking Vicodin at home.
Past History
Past History
ED Past Medical History: Asthma (Sport induced), Fibromyalgia, GERD, Hypercholesterolemia, Seizures (Pseudoseizures), Psychiatric (panic attacks, anxiety disorder, PTSD,), Other (pseudoseizures, headaches, Barretts esophagitis, Gastritis, Scoliosis,
Endometriosis, 'dormant' Lyme's disease, chronic pelvic pain, Pyelonephritis, Hiatal hernia, Sarah, ) and Other (Thoracic outlet syndrome, Hiatal hernia, UTi, Cystitis, Optic neuritis, Pleurisy, Lupus)
ED Past Surgical History: Appendectomy, Gynecological (Laparoscopy 07/12/2014, Endometriiosis Surgery X 2), Tonsilectomy and Other (Sinus surgery)
Social History
Tobacco: Former smoker
Alcohol: None
Drug: None
Personal:
Living: with family
Employment: Not employed
Family History
Family History: Other (states had grandparents with heart problems in their 50's)
Phy Exam
Physical Exam
Physical Exam:
GENERAL: Upset from pain
HEENT: normocephalic, extraocular movements intact, moist oral mucosa
NECK: normal inspection
RESPIRATORY: no respiratory distress, clear to auscultation bilaterally
CARDIOVASCULAR: regular rate and rhythm
ABDOMEN/: soft, non-distended, non-tender to palpation, no rebound or guarding
EXTREMITIES: Left lower extremity diffusely tender, no obvious discoloration, peripheral pulses intact, normal cap refill, strength limited secondary to pain, no signs of trauma, compartments soft
NEUROLOGIC: awake and alert, moves all extremities
SKIN: warm
Course
Orders/Labs/Results
Orders:
Orders
06/10/24 15:23
Complete Blood Count/With Diff Urgent
Comprehensive Metabolic Panel Urgent
Creatine Phosphokinase Urgent
Comment: ADD ON
Lyme Progressive Urgent
06/10/24 17:56
US Periph Art LOWER Ext w CUCO Urgent
Comment:
Reason For Exam: claudiation pain, 'pop' behind knee
06/10/24 17:57
Add On- LAB Urgent
Tests Added?: CK
Hydrocodone 5/APAP 325 [[place] 5/325] 1 tablet PO NOW STA
Abnormal Lab Results
06/10/24
15:23
MCH 32.1 H pg
(27.0-31.0)
Plt Count 417 H 10^3/uL
(130-400)
Absolute Monos (auto) 0.7 H 10^3/uL
(0.1-0.6)
Albumin 5.1 H g/dl
(3.5-5.0)
06/10/24 15:23
06/10/24 15:23
Vital Signs
Initial and Last Documented VS:
Initial Vital Signs
Temp Pulse Resp BP Pulse Ox
99.2 F 110 18 156/89 99
06/10/24 15:03 06/10/24 15:03 06/10/24 15:03 06/10/24 15:03 06/10/24 15:03
Last Documented Vital Signs
Temp Pulse Resp BP Pulse Ox
99.2 F 80 16 119/79 98
06/10/24 15:03 06/10/24 19:10 06/10/24 19:10 06/10/24 19:10 06/10/24 19:10
MDM/Problems Addressed
Differential Diagnosis Includes:
Patient is a 39-year-old woman with multiple medical conditions most notable for lupus presenting to the emergency department with leg pain has been worsening for the past week. Vitals here are unremarkable and exam does show diffuse tenderness to
the entire left lower extremity though no obvious signs of trauma rash with a normal cap refill and normal distal pulses. Given patient does state that is worse with exertion cannot rule out claudication especially given that she states that the
pain is behind her knee and she might of heard a pop. Will rule out any arterial disease. Other considerations could be rhabdomyolysis given the diffuse pain. History and exam not consistent with compartment syndrome, DVT, fractures,. No obvious
rash to suggest shingles. No back pain or abdominal pain to suggest radiating pain. Blood work obtained unremarkable. Will add on CK. Will obtain CUCO and arterial ultrasound. Will pain control
*Critical Care Note
Total Time (30-74mins, 75-104mins- exclusive of procedures): Not Applicable
Update Note
Update Note:
Blood work unremarkable. CK is negative. Discussed with vascular who will complete ultrasound. Patient signed out to oncoming attending pending results of ultrasound.
ED Attending Note
-
Portions of this chart may have been created with voice recognition software.� Occasional wrong word or��sound alike� substitutions may have occurred due to the inherent limitations of voice recognition software.
Discharge Plan
Departure
Prescriptions:
No Action
omeprazole 20 mg capsule,delayed release(DR/EC)
40 mg PO DAILY
carisoprodol 350 mg tablet
350 mg PO QID PRN (Reason: lupus pain)
hydrocodone-acetaminophen 5-325 mg tablet
1 tab PO BID PRN (Reason: moderate pain)
Patient Comments:
03/26/2023: last filled 02/27/23, 90 tabs for 30 days from [facility]
diclofenac sodium 50 mg tablet,delayed release (DR/EC)
50 mg PO TID MDD lupus pain PRN (Reason: Pain)
duloxetine 60 mg capsule,delayed release(DR/EC)
60 mg PO DAILY
minocycline 100 mg Capsule
100 mg PO BID
prednisone 5 mg Tablet
5 mg PO .BID-TID
amphetamine sulfate 5 mg Tablet
5 mg PO .BID-TID PRN (Reason: lupus flare)
Referrals:
Janey Collins DO [Family Provider] -
Interventions
Interventions:
*Risk Screen - Suicide Last Done: 06/10/24 15:03
*General Assessment Last Done: 06/10/24 15:03
*Neglect/Abuse Screening Last Done: 06/10/24 15:03
ED- Fall Risk Assessment Last Done: 06/10/24 17:50
*ED COVID-19 Vaccine History Last Done: 06/10/24 17:50
ED-Musculoskeletal Assessment Last Done: 06/10/24 17:01
Discharge Date and Time
Print Language: INDONESIAN
[2024-06-10] MEDS: NORCO 5/325 1 TABLET PO (18:14)
[2024-06-10 18:30] LABS: Creatine Phosphokinase 49 U/L (30-135)
[2024-06-10 19:10] VITALS: BP 119/79; BMI 25.2
--- NOTE | 2024-06-10 19:16 | EDRN ---
Pt prone on stretcher with L leg pulled up at knee. Pt has not gotten relief with pain pill and says 'they never work.' Pt does not want more pain medications because 'I'm already on so many meds I don't want any more.' Pt complains of pain L
leg. No known injury, recent travel, rash, fever/chills. Pt notes intermittent discoloration of L leg, has been ambulating. This does not feel like pt's usual lupus flare.
[2024-06-10 20:47] VITALS: BP 116/78
[2024-06-10 21:02] LABS: Urine Albumin Trace (Neg - Trace); Urine Bilirubin 1+ (Negative); Urine Character Clear (Clear); Urine Color Amber; Urine Glucose Negative (Negative); Urine Ketone 1+ (Negative); Urine Leukocyte Trace (Negative); Urine Nitrite Negative (Negative); Urine Occult Blood Negative (Negative); Urine Specific Gravity 1.025 (<1.030); Urine Urobilinogen 1+ (Neg - 1+)
[2024-06-10 21:14] LABS: Urine Squamous Cell >30 /LPF (Few)
[2024-06-10 21:15] LABS: Urine Mucus Few; Urine Red Blood Cell None Seen /HPF (0-2)
--- NOTE | 2024-06-10 21:40 | EDRN ---
2134 - pt given d/c instructions and expressed frustration that her doctors aren't seeing her and send her to the ED for evaluation, that she comes to the ED and nothing is found. Pt says she cannot take care of her family with recent medical
issues. Explained to pt need for outpatient follow up with her doctors, emergent conditions have been ruled out in the ED. Pt tearful 'I don't want to do a bone biopsy or go to a account manager b2b.' Pt stated she cannot have a terminal supervisor medical
problem. Listened to pt's concerns, encouraged her to call her specialist on Thursday morning and request follow up appointment for further evaluation, return to ED if symptoms change/worsen. Pt calling her for a ride home. Pt declined
wheelchair transport stating she will walk.
--- NOTE | 2024-06-10 21:49 | EDRN ---
Informed pt was in the hallway asking questions of the pharmacist. This RN came over to speak with pt. Pt holding her paperwork and asking about her urine results 'I have markers in there, what do they mean?' Explained to pt urine was sent to
rule out uti which she does not have. Pt upset with Dr Wesley because he 'came in, asked me a couple questions and said he would look at things and come back.' Pt mentioned this to this RN when giving d/c instructions and pt was asked multiple
times if she would like to speak with the physician which she declined. While standing in hallway inquiring about her lab results, pt asked if the doctor's name was on her paperwork. This RN looked and informed pt the initial physician, Dr Dickey's,
name was on the paperwork. Informed pt that Dr Wesley was following up for Dr Dickey and asked pt again if she would like to speak with him. Pt declined to speak with Dr Wesley and requested his name be written on her paperwork which this RN
provided. Pt started walking the wrong way down the hallway so this RN asked pt if she was trying to leave 'I guess I have to. You can't find anything wrong with me.' Yariel from [employer] was standing nearby and offered to escort pt which she
accepted.
[2024-06-13 14:39] LABS: Lyme Antibody Screen, EIA Negative (Negative)
== END 2024-06-10 21:49 | disposition home or self-care (01) ==
LOC: EMR 14:48
PROVIDERS: Emergency Medicine; Student in an Organized Health Care Education/Training Program; EMERGENCY PHYSICIAN Emergency Medicine; FAMILY PHYSICIAN Internal Medicine
DX: G89.29 Other chronic pain (principal); M79.605 Pain in left leg; M79.604 Pain in right leg
CPT/HCPCS: 99284; 80053; 81003; 81015; 82550; 85025; 86618; 93922; 93925

== ENCOUNTER 2024-08-09 19:55 | Emergency (ER) | payer OTHER, SELFPAY ==
[2024-08-09 19:57] VITALS: BP 118/82
[2024-08-09 20:21] LABS: % Basophils 0.2 % (0-2); % Eosinophils 0.5 % (0-6); % Immature Granulocytes 0.2 % (0-0.5); % Lymphocytes 25.7 % (20.5-51.1); % Monocytes 9.5 % (1.7-9.3); % Neutrophils 63.9 % (42.2-75.2); Absolute Lymphocytes 2.1 10^3/uL (1.2-3.4); Absolute Monocytes 0.8 10^3/uL (0.1-0.6); Absolute Neutrophils 5.3 10^3/uL (1.4-6.5); Hematocrit 37.2 % (37.0-47.0); Hemoglobin 12.9 g/dL (12.0-16.0); Mean Corp Hgb Conc. 34.7 g/dL (33.0-37.0); Mean Corpuscular Hgb 33.2 pg (27.0-31.0); Mean Corpuscular Volume 95.6 fL (81.0-99.0); Mean Platelet Volume 8.8 fL (7.4-10.4); Nucleated Red Blood Cells % 0 %; Platelet Count 335 10^3/uL (130-400); Red Blood Cell Count 3.89 10^6/uL (4.20-5.40); Red Cell Dist. Width 11.9 % (11.5-14.5); White Blood Cell Count 8.3 10^3/uL (4.8-10.8)
[2024-08-09 20:39] LABS: ALT (SGPT) 25 U/L (0-35); AST (SGOT) 22 U/L (14-36); Albumin 4.5 g/dl (3.5-5.0); Alkaline Phosphatase 33 U/L (38-126); Blood Urea Nitrogen 16 mg/dl (7-17); Calcium 9.4 mg/dl (8.4-10.2); Carbon Dioxide 29 mmol/L (22-30); Chloride 99 mmol/L (98-107); Glucose 94 mg/dl (70-99); Potassium 4.1 mmol/L (3.5-5.1); Sodium 138 mmol/L (135-145); Total Bilirubin 0.2 mg/dl (0.2-1.3); Total Protein 6.7 g/dl (6.3-8.2); eGFR > 60.00
[2024-08-09 20:45] LABS: Troponin I < 0.012 ng/ml
[2024-08-09 21:15] VITALS: BP 123/68
--- NOTE | 2024-08-09 21:51 | ED.GENMED ---
History of Present Illness
General
Chief Complaint: Breast Problem
Time Seen by Provider: 08/09/24 21:13
History of Present Illness
History of Present Illness:
39-year-old female presenting with left breast pain for the past few days. Patient states that initially it was just tender to touch but then developed erythematous rash and greenish discharge from her left nipple starting today. Patient states
that she has not been wearing a bra. Patient states that she is on hydrocodone which she has been taking with minimal relief. Patient denies fever, chills, shortness of breath or cough. Patient states that she had a mammogram 5 months ago that
was normal.
Past History
Past History
ED Past Medical History: Asthma (Sport induced), Fibromyalgia, GERD, Hypercholesterolemia, Seizures (Pseudoseizures), Psychiatric (panic attacks, anxiety disorder, PTSD,), Other (pseudoseizures, headaches, Barretts esophagitis, Gastritis, Scoliosis,
Endometriosis, 'dormant' Lyme's disease, chronic pelvic pain, Pyelonephritis, Hiatal hernia, Sarah, ) and Other (Thoracic outlet syndrome, Hiatal hernia, UTi, Cystitis, Optic neuritis, Pleurisy, Lupus)
ED Past Surgical History: Appendectomy, Gynecological (Laparoscopy 07/12/2014, Endometriiosis Surgery X 2), Tonsilectomy and Other (Sinus surgery)
Social History
Tobacco: Former smoker
Alcohol: None
Drug: None
Personal:
Living: with family
Employment: Not employed
Family History
Family History: Other (states had grandparents with heart problems in their 50's)
Phy Exam
Physical Exam
Physical Exam:
General: Alert, no acute distress
Head: NCAT
Eyes: clear conjunctiva
Neck: supple
Cardiac: regular rate and rhythm, no murmur. 2+ left radial pulse
Lungs: clear to auscultation bilaterally. No wheezes, rales, or rhonchi. Speaking full unlabored sentences. No respiratory distress.
Left breast: erythema to inferior left breast with tenderness to palpation. No vesicles. No increased warmth. No induration or fluctuance. Initially had no nipple discharge, but patient able to express ariza discharge with squeezing left breast. no
left axillary lymphadenopathy
Skin: warm, dry
Neuro: Alert and oriented x3. no focal deficits
Course
Orders/Labs/Results
Orders:
Orders
08/09/24 20:01
Electrocardiogram (*1) Urgent
Reason for Study: Chest Pain
EKG- Treatment ONCE
08/09/24 20:07
Comprehensive Metabolic Panel Urgent
Troponin I Urgent
08/09/24 20:08
Complete Blood Count/With Diff Urgent
08/09/24 21:57
Cephalexin Monohydrate [Keflex] 500 mg PO NOW STA
08/09/24 21:58
Wound Culture [Wound/Abscess/Other Culture] Urgent
LIN Source: Breast
Specimen Description: Left
Date Specimen was Collected: 08/09/24
Time Specimen was Collected: 21:55
Abnormal Lab Results
08/09/24 08/09/24
20:07 20:08
RBC 3.89 L 10^6/uL
(4.20-5.40)
MCH 33.2 H pg
(27.0-31.0)
Absolute Monos (auto) 0.8 H 10^3/uL
(0.1-0.6)
Monocytes % 9.5 H %
(1.7-9.3)
Alkaline Phosphatase 33 L U/L
(38-126)
08/09/24 20:08
08/09/24 20:07
Vital Signs
Initial and Last Documented VS:
Initial Vital Signs
Temp Pulse Resp BP Pulse Ox
99.2 F 98 18 118/82 98
08/09/24 19:57 08/09/24 19:57 08/09/24 19:57 08/09/24 19:57 08/09/24 19:57
Last Documented Vital Signs
Temp Pulse Resp BP Pulse Ox
99.2 F 80 22 123/68 98
08/09/24 19:57 08/09/24 21:45 08/09/24 21:45 08/09/24 21:15 08/09/24 21:45
MDM/Problems Addressed
Differential Diagnosis Includes:
Mastitis, cellulitis
MDM/Problems Addressed:
39-year-old female presenting with left breast pain and nipple discharge. Labs reviewed, WBC 8.3 no left shift or bandemia. Electrolytes within normal limits. Troponin negative. EKG shows normal sinus rhythm at 80 bpm with [place] 168 QTc 394 with no
acute ischemic changes. Concern for developing mastitis given erythema, tenderness to palpation, nipple discharge. Will start on Keflex. Advised warm compresses, supportive bra, stable for discharge with breast surgeon follow-up
*Critical Care Note
Total Time (30-74mins, 75-104mins- exclusive of procedures): Not Applicable
ED Attending Note
-
Portions of this chart may have been created with voice recognition software.� Occasional wrong word or��sound alike� substitutions may have occurred due to the inherent limitations of voice recognition software.
Discharge Plan
Departure
Patient Disposition: Home (Routine Discharge)
Date of Disposition: 08/09/24
Time of Disposition: 21:51
Patient with high blood pressure during this ER visit?: No
Discharge Problem:
Mastitis
Prescriptions:
New
cephalexin 500 mg capsule
500 mg PO QID 10 Days Qty: 40 0RF
No Action
omeprazole 20 mg capsule,delayed release(DR/EC)
40 mg PO DAILY
carisoprodol 350 mg tablet
350 mg PO QID PRN (Reason: lupus pain)
hydrocodone-acetaminophen 5-325 mg tablet
1 tab PO BID PRN (Reason: moderate pain)
Patient Comments:
03/26/2023: last filled 02/27/23, 90 tabs for 30 days from [facility]
diclofenac sodium 50 mg tablet,delayed release (DR/EC)
50 mg PO TID MDD lupus pain PRN (Reason: Pain)
duloxetine 60 mg capsule,delayed release(DR/EC)
60 mg PO DAILY
minocycline 100 mg Capsule
100 mg PO BID
prednisone 5 mg Tablet
5 mg PO .BID-TID
amphetamine sulfate 5 mg Tablet
5 mg PO .BID-TID PRN (Reason: lupus flare)
Referrals:
Abby Ellis MD [Active] -
Activity Restrictions/Additional Instructions:
Take keflex 4 times daily for 10 days
Use warm compresses and supportive bra
Take tylenol 975mg every 6 hours and/or ibuprofen 800mg every 8 hours with food as needed for pain
Follow up with breast surgeon this week
Return to the emergency department for fever or new/worsening symptoms
Interventions
Interventions:
*Risk Screen - Suicide Last Done: 08/09/24 19:57
*General Assessment Last Done: 08/09/24 19:57
*Neglect/Abuse Screening Last Done: 08/09/24 19:57
ED- Fall Risk Assessment Last Done: 08/09/24 22:11
*ED COVID-19 Vaccine History Last Done: 08/09/24 19:57
*Nursing Disposition Last Done: 08/09/24 22:11
ED-Skin Assessment Last Done: 08/09/24 21:16
Discharge Date and Time
Discharge Date/Time: 08/09/24 22:11
Print Language: NIGERIAN
[2024-08-09] MEDS: KEFLEX 500 MG PO (22:04)
== END 2024-08-09 22:11 | disposition home or self-care (01) ==
LOC: EMR 19:55
PROVIDERS: Emergency Medicine; EMERGENCY PHYSICIAN Emergency Medicine
DX: N61.0 Mastitis without abscess (principal); R21 Rash and other nonspecific skin eruption; J45.909 Unspecified asthma, uncomplicated; M79.7 Fibromyalgia; K21.9 Gastro-esophageal reflux disease without esophagitis; F41.0 Panic disorder [episodic paroxysmal anxiety]; E78.00 Pure hypercholesterolemia, unspecified; F41.9 Anxiety disorder, unspecified; F43.10 Post-traumatic stress disorder, unspecified; N80.9 Endometriosis, unspecified; G54.0 Brachial plexus disorders; M32.9 Systemic lupus erythematosus, unspecified; M41.9 Scoliosis, unspecified; Z87.19 Personal history of other diseases of the digestive system; Z87.440 Personal history of urinary (tract) infections; Z87.891 Personal history of nicotine dependence; Z90.49 Acquired absence of other specified parts of digestive tract
CPT/HCPCS: 99283; 80053; 84484; 85025; 87070; 87205; 93005

== ENCOUNTER → 2024-08-17 15:34 | Outpatient (REF) | payer OTHER, SELFPAY | LOC: HWRAD 15:34 | PROVIDERS: ATTENDING PHYSICIAN Internal Medicine Rheumatology; FAMILY PHYSICIAN Internal Medicine | DX: M35.9 Systemic involvement of connective tissue, unspecified (principal); R07.89 Other chest pain | CPT/HCPCS: 71250 ==

== ENCOUNTER → 2024-08-22 20:49 | Outpatient (REF) | payer OTHER, SELFPAY | LOC: MRI 3T 20:49 | PROVIDERS: ATTENDING PHYSICIAN Surgery; FAMILY PHYSICIAN Internal Medicine | DX: N64.52 Nipple discharge (principal) | CPT/HCPCS: 77049; A9585 ==

== ENCOUNTER 2024-08-25 19:24 | Emergency (ER) | payer OTHER, SELFPAY ==
[2024-08-25 19:24] VITALS: BMI 26.3
[2024-08-25 19:26] VITALS: BP 125/100
[2024-08-25 19:50] LABS: % Basophils 0.3 % (0-2); % Eosinophils 0.4 % (0-6); % Immature Granulocytes 0.3 % (0-0.5); % Lymphocytes 27.7 % (20.5-51.1); % Monocytes 9.2 % (1.7-9.3); % Neutrophils 62.1 % (42.2-75.2); Absolute Monocytes 0.7 10^3/uL (0.1-0.6); Absolute Neutrophils 4.4 10^3/uL (1.4-6.5); Hematocrit 38.4 % (37.0-47.0); Hemoglobin 13.4 g/dL (12.0-16.0); Mean Corp Hgb Conc. 34.9 g/dL (33.0-37.0); Mean Corpuscular Hgb 33.1 pg (27.0-31.0); Mean Corpuscular Volume 94.8 fL (81.0-99.0); Mean Platelet Volume 8.6 fL (7.4-10.4); Nucleated Red Blood Cells % 0 %; Platelet Count 373 10^3/uL (130-400); Red Blood Cell Count 4.05 10^6/uL (4.20-5.40); Red Cell Dist. Width 11.5 % (11.5-14.5); White Blood Cell Count 7.1 10^3/uL (4.8-10.8)
[2024-08-25 20:02] LABS: ALT (SGPT) 21 U/L (0-35); AST (SGOT) 22 U/L (14-36); Albumin 4.8 g/dl (3.5-5.0); Alkaline Phosphatase 36 U/L (38-126); Blood Urea Nitrogen 19 mg/dl (7-17); Calcium 9.6 mg/dl (8.4-10.2); Carbon Dioxide 28 mmol/L (22-30); Chloride 97 mmol/L (98-107); Glucose 102 mg/dl (70-99); Lipase 144 U/L (23-300); Potassium 4.9 mmol/L (3.5-5.1); Sodium 135 mmol/L (135-145); Total Bilirubin 0.3 mg/dl (0.2-1.3); Total Protein 7.1 g/dl (6.3-8.2); eGFR > 60.00
[2024-08-25 20:14] LABS: Troponin I < 0.012 ng/ml
[2024-08-25 20:35] LABS: HCG, Serum Qualitative Screen Negative
--- NOTE | 2024-08-25 20:46 | ED.GENMED ---
History of Present Illness
General
Chief Complaint: Chest Problem
Source: patient
Time Seen by Provider: 08/25/24 20:27
History of Present Illness
History of Present Illness:
39yoF with a history of lupus, Barlow's esophagus, and a hiatal hernia presenting for evaluation of multiple complaints. Patient reports pain in epigastric and central chest region ongoing for the past 3 weeks or so. Patient states it feels like
a deep pain that radiates to her back. She also reports nausea, vomiting, and diarrhea that began 4 days ago. The diarrhea is only present in the morning and resolves later in the day. She has been noticing some dark stools. Additionally,
patient is having lightheadedness, shortness of breath, and brain fog. Patient was seen in the 08/09/2024 for mastitis. Patient was prescribed Keflex which the breast surgeon discontinued. Patient had an MRI of her breast which was negative for
malignancy. She also had a CT of her chest on 08/17/24 which was negative for acute findings.
Past History
Past History
ED Past Medical History: Asthma (Sport induced), Fibromyalgia, GERD, Hypercholesterolemia, Seizures (Pseudoseizures), Psychiatric (panic attacks, anxiety disorder, PTSD,), Other (pseudoseizures, headaches, Barretts esophagitis, Gastritis, Scoliosis,
Endometriosis, 'dormant' Lyme's disease, chronic pelvic pain, Pyelonephritis, Hiatal hernia, Sarah, ) and Other (Thoracic outlet syndrome, Hiatal hernia, UTi, Cystitis, Optic neuritis, Pleurisy, Lupus)
ED Past Surgical History: Appendectomy, Gynecological (Laparoscopy 07/12/2014, Endometriiosis Surgery X 2), Tonsilectomy and Other (Sinus surgery)
Social History
Tobacco: Former smoker
Alcohol: None
Drug: None
Personal:
Living: with family
Employment: Not employed
Family History
Family History: Other (states had grandparents with heart problems in their 50's)
Phy Exam
General Physical Exam
General Presentation: no apparent distress
General age: appears stated age
General Skin: warm and dry
General Habitus: normal
General Mental: alert
ENT Exam
ENT Exam: normocephalic
Cardiovascular Exam
Cardiovascular Exam: regular rate/rhythm and no murmur
Pulmonary Exam
Pulmonary Exam: lungs clear, no respiratory distress, no rales, no crackles, no rhonchi and no wheezing
Gastrointestinal Exam
Gastrointestinal Exam: soft, non distended and tender (+Mild tenderness to LUQ and epigastrium. No rebound or guarding. )
Stool: other (No stool obtained on digital rectal exam.)
[place] Coma Scale
Eye Opening: Spontaneous
Verbal Response: Oriented
Motor Response: Obeys Commands
GCS Total Score: 15
Skin Exam
Skin Exam: normal color and warm/dry
Psychiatric Exam
Psychiatric Exam: normal mood/affect
Course
Orders/Labs/Results
Orders:
Orders
08/25/24 19:25
Electrocardiogram (*1) Urgent
Reason for Study: Chest Pain
EKG- Treatment ONCE
08/25/24 19:31
Electrocardiogram (*1) Urgent
Reason for Study: Chest Pain
08/25/24 19:32
EKG- Treatment ONCE
08/25/24 19:37
Type+Screen Urgent
Complete Blood Count/With Diff Urgent
Comprehensive Metabolic Panel Urgent
HCG, Serum Qualitative Screen Urgent
Comment: ADD ON
Lipase Urgent
Troponin I Urgent
08/25/24 19:58
Add On- LAB Urgent
Tests Added?: hcg serum qualitative
08/25/24 20:45
US Abdomen Complete/Upper Urgent
Comment:
Reason For Exam: Upper abd pain
08/25/24 20:47
Ondansetron Injectable [Zofran] 4 mg IV NOW STA
08/25/24 21:18
D-Dimer Urgent
08/25/24 21:33
Ketorolac [Toradol] 15 mg IV NOW STA
Magnesium Sulfate 1 G/D5w [Magnesium Sulfate] 1 gm in 100 ml IV NOW
08/25/24 23:11
Diphenhydramine [Benadryl] 25 mg IV NOW STA
Metoclopramide [Reglan] 10 mg IV NOW STA
Abnormal Lab Results
08/25/24
19:37
RBC 4.05 L 10^6/uL
(4.20-5.40)
MCH 33.1 H pg
(27.0-31.0)
Absolute Monos (auto) 0.7 H 10^3/uL
(0.1-0.6)
Chloride 97 L mmol/L
(98-107)
BUN 19 H mg/dl
(7-17)
Glucose 102 H mg/dl
(70-99)
Alkaline Phosphatase 36 L U/L
(38-126)
08/25/24 19:37
08/25/24 19:37
Vital Signs
Initial and Last Documented VS:
Initial Vital Signs
Temp Pulse Resp BP Pulse Ox
98.6 F 114 18 125/100 99
08/25/24 19:26 08/25/24 19:26 08/25/24 19:26 08/25/24 19:26 08/25/24 19:26
Last Documented Vital Signs
Temp Pulse Resp BP Pulse Ox
98.6 F 79 18 118/77 97
08/25/24 19:26 08/25/24 22:37 08/25/24 22:37 08/25/24 22:37 08/25/24 22:37
MDM/Problems Addressed
Differential Diagnosis Includes:
39yoF here with multiple complaints including upper abd/chest pain x 3 weeks. Also c/o lightheadedness, SOB, dark stools, and a headache. VSS. She is well appearing in no distress. No signs of peritonitis on abdominal exam. No stool obtained on STERLING.
Differential diagnosis includes but is not limited to: gastritis, GERD, PE, doubt ACS
Initial ED plan: Cardiac labs and EKG obtained in triage. Hemoglobin is normal at 13.4 which is stable from prior labs. EKG shows NSR without ischemic changes and troponin WNL. Remainder of labs unremarkable. Will add on D-dimer and upper abdominal
ultrasound. IV Zofran for nausea.
*EKG
Interpreted by ED Provider?: Yes
EKG Intrepretation Date: 08/25/24
Heart Rate: 97
Rate: normal
Rhythm: sinus
[place]: normal axis
Interval: normal interval
QRS Pattern: normal QRS
Ischemia: no ischemia
*Critical Care Note
Total Time (30-74mins, 75-104mins- exclusive of procedures): Not Applicable
Update Note
Update Note:
D-dimer normal making PE very unlikely. Abdominal ultrasound negative for acute findings. During ED stay, patient requesting medications for a new onset migraine. Pain improved with IV Toradol, Reglan/Benadryl, and magnesium. Patient requesting to
be discharged. She was advised to f/u with her PCP and GI. ED return precautions discussed. She expressed understanding and is agreeable to plan. She was discharged in stable condition.
ED Attending Note
-
Portions of this chart may have been created with voice recognition software.� Occasional wrong word or��sound alike� substitutions may have occurred due to the inherent limitations of voice recognition software.
Discharge Plan
Departure
Patient Disposition: Home (Routine Discharge)
Date of Disposition: 08/25/24
Time of Disposition: 23:40
Patient with high blood pressure during this ER visit?: No
Discharge Problem:
Epigastric abdominal pain, Chest pain, Lightheadedness, Acute nonintractable headache
Instructions: Chest Pain PCP Follow Up
Prescriptions:
No Action
omeprazole 20 mg capsule,delayed release(DR/EC)
40 mg PO DAILY
carisoprodol 350 mg tablet
350 mg PO QID PRN (Reason: lupus pain)
hydrocodone-acetaminophen 5-325 mg tablet
1 tab PO BID PRN (Reason: moderate pain)
Patient Comments:
03/26/2023: last filled 02/27/23, 90 tabs for 30 days from [facility]
diclofenac sodium 50 mg tablet,delayed release (DR/EC)
50 mg PO TID MDD lupus pain PRN (Reason: Pain)
duloxetine 60 mg capsule,delayed release(DR/EC)
60 mg PO DAILY
minocycline 100 mg Capsule
100 mg PO BID
prednisone 5 mg Tablet
5 mg PO .BID-TID
amphetamine sulfate 5 mg Tablet
5 mg PO .BID-TID PRN (Reason: lupus flare)
cephalexin 500 mg capsule
500 mg PO QID 10 Days Qty: 40 0RF
Referrals:
Janey Collins, DO [Family Provider] -
Activity Restrictions/Additional Instructions:
Please call tomorrow to schedule a follow-up with your family doctor and filler shredder machine. Return to the ER with any new or worsening symptoms.
Interventions
Interventions:
*Risk Screen - Suicide Last Done: 08/25/24 19:26
*General Assessment Last Done: 08/25/24 19:26
*Neglect/Abuse Screening Last Done: 08/25/24 21:10
*ED COVID-19 Vaccine History Last Done: 08/25/24 21:10
Discharge Date and Time
Print Language: SAMMARINESE
[2024-08-25 21:09] VITALS: BP 117/81
[2024-08-25] MEDS: ZOFRAN 4 MG IV (21:22)
[2024-08-25 21:42] LABS: D-Dimer < 0.27 ug/mlFEU (0.00-0.50)
[2024-08-25] MEDS: TORADOL 15 MG IV (22:34)
[2024-08-25] MEDS: MAGNESIUM SULFATE 100 IV (22:35)
[2024-08-25 22:37] VITALS: BP 118/77
[2024-08-25] MEDS: BENADRYL 25 MG IV (23:25)
[2024-08-25] MEDS: REGLAN 10 MG IV (23:29)
== END 2024-08-25 23:57 | disposition home or self-care (01) ==
LOC: EMR 19:24
PROVIDERS: Emergency Medicine; Physician Assistant; EMERGENCY PHYSICIAN Emergency Medicine; FAMILY PHYSICIAN Internal Medicine
DX: R10.13 Epigastric pain (principal); R07.89 Other chest pain; R42 Dizziness and giddiness; R51.9 Headache, unspecified; M32.9 Systemic lupus erythematosus, unspecified; K22.70 Barrett's esophagus without dysplasia; K44.9 Diaphragmatic hernia without obstruction or gangrene; J45.909 Unspecified asthma, uncomplicated; M79.7 Fibromyalgia; E78.00 Pure hypercholesterolemia, unspecified; F41.9 Anxiety disorder, unspecified; F43.10 Post-traumatic stress disorder, unspecified; M41.9 Scoliosis, unspecified; Z87.19 Personal history of other diseases of the digestive system; Z87.440 Personal history of urinary (tract) infections; Z87.891 Personal history of nicotine dependence; Z90.49 Acquired absence of other specified parts of digestive tract
CPT/HCPCS: 99284; 96365; 96375; 76700; 80053; 83690; 84484; 84703; 85025; 85379; 86850; 86900; 86901; 93005

== ENCOUNTER → 2024-09-07 14:57 | Outpatient (REF) | payer OTHER, SELFPAY ==
[2024-09-07 16:37] LABS: % Basophils 0.4 % (0-2); % Eosinophils 0.1 % (0-6); % Immature Granulocytes 0.3 % (0-0.5); % Lymphocytes 33.5 % (20.5-51.1); % Monocytes 9.7 % (1.7-9.3); Absolute Lymphocytes 2.6 10^3/uL (1.2-3.4); Absolute Monocytes 0.7 10^3/uL (0.1-0.6); Absolute Neutrophils 4.3 10^3/uL (1.4-6.5); Hematocrit 36.2 % (37.0-47.0); Hemoglobin 12.6 g/dL (12.0-16.0); Mean Corp Hgb Conc. 34.8 g/dL (33.0-37.0); Mean Corpuscular Hgb 31.7 pg (27.0-31.0); Mean Platelet Volume 9.2 fL (7.4-10.4); Nucleated Red Blood Cells % 0 %; Platelet Count 347 10^3/uL (130-400); Red Blood Cell Count 3.98 10^6/uL (4.20-5.40); Red Cell Dist. Width 11.4 % (11.5-14.5); White Blood Cell Count 7.6 10^3/uL (4.8-10.8)
== END ==
LOC: REG 14:57
PROVIDERS: ATTENDING PHYSICIAN Physician Assistant; FAMILY PHYSICIAN Internal Medicine; REFERRING PHYSICIAN Registered Nurse
DX: Z04.6 Encounter for general psychiatric examination, requested by authority (principal); E78.5 Hyperlipidemia, unspecified; Z79.899 Other long term (current) drug therapy; R19.7 Diarrhea, unspecified
CPT/HCPCS: 36415; 74018; 85025

== ENCOUNTER 2024-09-07 15:42 | Emergency (ER) | payer OTHER, SELFPAY ==
[2024-09-07 15:55] VITALS: BP 123/81
[2024-09-07 18:04] LABS: HCG, Serum Qualitative Screen Negative
[2024-09-07 18:10] LABS: ALT (SGPT) 21 U/L (0-35); AST (SGOT) 26 U/L (14-36); Albumin 4.9 g/dl (3.5-5.0); Alkaline Phosphatase < 20 U/L (38-126); Blood Urea Nitrogen 8 mg/dl (7-17); Calcium 9.3 mg/dl (8.4-10.2); Carbon Dioxide 21 mmol/L (22-30); Chloride 102 mmol/L (98-107); Glucose 73 mg/dl (70-99); Potassium 4.2 mmol/L (3.5-5.1); Sodium 141 mmol/L (135-145); Total Bilirubin 0.6 mg/dl (0.2-1.3); Total Protein 7.4 g/dl (6.3-8.2); eGFR > 60.00
[2024-09-07 18:43] LABS: TSH Reflex To Free T4 0.74 uIU/ml (0.47-4.68)
[2024-09-07 19:25] VITALS: BP 134/75
[2024-09-07 19:37] LABS: Urine Albumin Negative (Neg - Trace); Urine Bilirubin Negative (Negative); Urine Character Clear (Clear); Urine Color Yellow; Urine Glucose Negative (Negative); Urine Ketone 3+ (Negative); Urine Leukocyte Negative (Negative); Urine Nitrite Negative (Negative); Urine Occult Blood Negative (Negative); Urine Urobilinogen Negative (Neg - 1+)
[2024-09-07 20:00] VITALS: BP 130/89
--- NOTE | 2024-09-07 23:44 | ED.GENMED ---
History of Present Illness
General
Chief Complaint: Fall
Source: patient
Exam Limitations: none
Time Seen by Provider: 09/07/24 17:14
Nursing documentation reviewed up to this point in time: agreed with
History of Present Illness
History of Present Illness:
Patient to ED for eval after 'collapse' in lobby after leaving an appt with her GI provider. SHe reports weakness that continues to worsen. States if she is up and moving for more than 2 hours, her legs give out. THis is what she feels occurred
today. States with rest her symptoms will resolve. States she has seen many providers but does not have a diagnosis. History of lupus but does not feel this is related to her leg weakness. Denies fever/chills, n/v/d. NO cp/pressure, SOB.
Past History
Past History
ED Past Medical History: Asthma (Sport induced), Fibromyalgia, GERD, Hypercholesterolemia, Seizures (Pseudoseizures), Psychiatric (panic attacks, anxiety disorder, PTSD,), Other (pseudoseizures, headaches, Barretts esophagitis, Gastritis, Scoliosis,
Endometriosis, 'dormant' Lyme's disease, chronic pelvic pain, Pyelonephritis, Hiatal hernia, Sarah, ) and Other (Thoracic outlet syndrome, Hiatal hernia, UTi, Cystitis, Optic neuritis, Pleurisy, Lupus)
ED Past Surgical History: Appendectomy, Gynecological (Laparoscopy 07/12/2014, Endometriiosis Surgery X 2), Tonsilectomy and Other (Sinus surgery)
Social History
Tobacco: Former smoker
Alcohol: None
Drug: None
Personal:
Living: with family
Employment: Not employed
Family History
Family History: Other (states had grandparents with heart problems in their 50's)
Review of Systems
Review of Systems
Allergies reviewed?: Yes
All Other Systems: ROS reviewed and negative except as documented in HPI and ROS
Constitutional: Reports fatigue
EENT: Reports no symptoms
Respiratory: Reports no symptoms
Cardiac: Reports no symptoms
ABD/GI: Reports no symptoms
: Reports no symptoms
Musculoskeletal: Reports no symptoms
Skin: Reports no symptoms
Neurological: Reports weakness
Psychiatric: Reports no symptoms
Phy Exam
General Physical Exam
General Presentation: well appearing and no apparent distress
General age: appears stated age
General Skin: warm and dry
General Habitus: normal
General Mental: alert
General Hydration: appears well hydrated
Cardiovascular Exam
Cardiovascular Exam: regular rate/rhythm and no edema
Pulmonary Exam
Pulmonary Exam: lungs clear, no respiratory distress and chest non tender
Neurological Exam
Neurological Exam: alert, oriented x3, CN II-XII intact, no motor deficits, no sensory deficits, speech normal and normal gait
Musculoskeletal Exam
Musculoskeletal Exam: full ROM and neuro vasc intact
Skin Exam
Skin Exam: normal color, warm/dry and no rash
Psychiatric Exam
Psychiatric Exam: normal mood/affect
Course
Orders/Labs/Results
Orders:
Orders
09/07/24 15:47
EKG [Electrocardiogram (*1)] Urgent
Reason for Study: Fatigue / Weakness
09/07/24 15:48
EKG- Treatment ONCE
09/07/24 17:31
Test Result ONCE
09/07/24 17:33
CT Head W/o Iv Contrast Urgent
Comment:
Reason For Exam: change in mental status
09/07/24 17:44
Comprehensive Metabolic Panel Urgent
HCG, Serum Qualitative Screen Urgent
TSH Reflex To Free T4 Urgent
09/07/24 17:54
Acetaminophen [Tylenol] 1,000 mg .ROUTE .STK-MED ONE
Ondansetron Orally Disint [Zofran Odt (Orally Disintegrating)] 4 mg .ROUTE .STK-MED ONE
09/07/24 17:55
Acetaminophen [Tylenol] 1,000 mg PO NOW STA
09/07/24 17:57
Ondansetron Orally Disint [Zofran Odt (Orally Disintegrating)] 4 mg .ROUTE .STK-MED ONE
09/07/24 17:58
Ondansetron Orally Disint [Zofran Odt (Orally Disintegrating)] 4 mg PO NOW STA
09/07/24 19:31
Urinalysis Reflex To Culture Urgent
Date Specimen was Collected: 09/07/24
Time Specimen was Collected: 19:15
Abnormal Lab Results
09/07/24 09/07/24
17:44 19:31
Carbon Dioxide 21 L mmol/L
(22-30)
Alkaline Phosphatase < 20 L U/L
(38-126)
Urine Ketones 3+ A
(Negative)
09/07/24 17:31
09/07/24 17:44
Vital Signs
Initial and Last Documented VS:
Initial Vital Signs
Temp Pulse Resp BP Pulse Ox
98.3 F 77 18 123/81 99
09/07/24 15:55 09/07/24 15:55 09/07/24 15:55 09/07/24 15:55 09/07/24 15:55
Last Documented Vital Signs
Temp Pulse Resp BP Pulse Ox
98.3 F 77 18 130/89 100
09/07/24 15:55 09/07/24 20:00 09/07/24 15:55 09/07/24 20:00 09/07/24 19:45
*Radiology
Radiology exam reviewed: radiology read reviewed
*Pulse Oximetry
Patient hypoxic: no
*Critical Care Note
Total Time (30-74mins, 75-104mins- exclusive of procedures): Not Applicable
Update Note
Update Note:
Labs, CT reviewed with patient. No concerning findings on exam. she is improved with IVF, rest. Will discharge home, follow up in AM with PCP. Given instructions on s/s to return to ED and she is agreeable to plan.
ED Attending Note
-
Portions of this chart may have been created with voice recognition software.� Occasional wrong word or��sound alike� substitutions may have occurred due to the inherent limitations of voice recognition software.
Discharge Plan
Departure
Patient Disposition: Home (Routine Discharge)
Date of Disposition: 09/07/24
Time of Disposition: 19:51
Patient with high blood pressure during this ER visit?: No
Condition: Good
Covid-19: Not Applicable
Discharge Problem:
Weakness
Instructions: Weakness
Prescriptions:
No Action
omeprazole 20 mg capsule,delayed release(DR/EC)
40 mg PO DAILY
carisoprodol 350 mg tablet
350 mg PO QID PRN (Reason: lupus pain)
hydrocodone-acetaminophen 5-325 mg tablet
1 tab PO BID PRN (Reason: moderate pain)
Patient Comments:
03/26/2023: last filled 02/27/23, 90 tabs for 30 days from [facility]
diclofenac sodium 50 mg tablet,delayed release (DR/EC)
50 mg PO TID MDD lupus pain PRN (Reason: Pain)
duloxetine 60 mg capsule,delayed release(DR/EC)
60 mg PO DAILY
minocycline 100 mg Capsule
100 mg PO BID
prednisone 5 mg Tablet
5 mg PO .BID-TID
amphetamine sulfate 5 mg Tablet
5 mg PO .BID-TID PRN (Reason: lupus flare)
cephalexin 500 mg capsule
500 mg PO QID 10 Days Qty: 40 0RF
Referrals:
Janey Collins DO [Family Provider] -
Felicitas Lundy MD [Active] - Next open appointment
Interventions
Interventions:
*Risk Screen - Suicide Last Done: 09/07/24 15:49
*Neglect/Abuse Screening Last Done: 09/07/24 15:49
*ED COVID-19 Vaccine History Last Done: 09/07/24 17:48
*Nursing Disposition Last Done: 09/07/24 20:36
ED-Musculoskeletal Assessment Last Done: 09/07/24 17:48
ED- Neurological Assessment Last Done: 09/07/24 17:48
ED-Skin Assessment Last Done: 09/07/24 17:48
Discharge Date and Time
Discharge Date/Time: 09/07/24 20:37
Print Language: CHINESE
== END 2024-09-07 20:37 | disposition home or self-care (01) ==
LOC: EMR 15:42
PROVIDERS: Nurse Practitioner; EMERGENCY PHYSICIAN Emergency Medicine; FAMILY PHYSICIAN Internal Medicine
DX: R53.1 Weakness (principal); E78.00 Pure hypercholesterolemia, unspecified; J45.909 Unspecified asthma, uncomplicated; M79.7 Fibromyalgia; Z87.19 Personal history of other diseases of the digestive system; Z87.891 Personal history of nicotine dependence; Z90.49 Acquired absence of other specified parts of digestive tract
CPT/HCPCS: 99284; 70450; 80053; 81003; 84443; 84703; 93005

== ENCOUNTER 2024-11-03 06:19 | Day surgery (SDC) | payer OTHER, SELFPAY | END 2024-11-03 11:14 | disposition home or self-care (01) | LOC: GI 06:19 | PROVIDERS: ATTENDING PHYSICIAN Internal Medicine Gastroenterology | DX: K44.9 Diaphragmatic hernia without obstruction or gangrene (principal); K22.89 Other specified disease of esophagus; K31.89 Other diseases of stomach and duodenum; K22.70 Barrett's esophagus without dysplasia; K29.50 Unspecified chronic gastritis without bleeding | CPT/HCPCS: 43239; 88305; 88342 ==

== ENCOUNTER 2025-02-11 02:14 | Observation (INO) | payer OTHER, SELFPAY ==
[2025-02-10 16:02] VITALS: BP 128/85
[2025-02-10 16:26] LABS: % Basophils 0.6 % (0-2); % Eosinophils 1.3 % (0-6); % Immature Granulocytes 0.2 % (0-0.5); % Lymphocytes 47.9 % (20.5-51.1); % Monocytes 8.2 % (1.7-9.3); % Neutrophils 41.8 % (42.2-75.2); Absolute Eosinophils 0.1 10^3/uL (0-0.7); Absolute Lymphocytes 2.2 10^3/uL (1.2-3.4); Absolute Monocytes 0.4 10^3/uL (0.1-0.6); Absolute Neutrophils 1.9 10^3/uL (1.4-6.5); Hematocrit 37.2 % (37.0-47.0); Hemoglobin 12.7 g/dL (12.0-16.0); Mean Corp Hgb Conc. 34.1 g/dL (33.0-37.0); Mean Corpuscular Hgb 31.3 pg (27.0-31.0); Mean Corpuscular Volume 91.6 fL (81.0-99.0); Nucleated Red Blood Cells % 0 %; Platelet Count 313 10^3/uL (130-400); Red Blood Cell Count 4.06 10^6/uL (4.20-5.40); Red Cell Dist. Width 11.6 % (11.5-14.5); White Blood Cell Count 4.6 10^3/uL (4.8-10.8)
[2025-02-10 16:47] LABS: ALT (SGPT) 16 U/L (0-35); AST (SGOT) 20 U/L (14-36); Albumin 4.8 g/dl (3.5-5.0); Alkaline Phosphatase 40 U/L (38-126); Blood Urea Nitrogen 7 mg/dl (7-17); Calcium 9.5 mg/dl (8.4-10.2); Carbon Dioxide 25 mmol/L (22-30); Chloride 108 mmol/L (98-107); Glucose 98 mg/dl (70-99); Potassium 3.9 mmol/L (3.5-5.1); Sodium 142 mmol/L (135-145); Total Bilirubin 0.4 mg/dl (0.2-1.3); eGFR > 60.00
[2025-02-10 17:18] LABS: TSH Reflex To Free T4 0.57 uIU/ml (0.47-4.68)
--- NOTE | 2025-02-10 20:41 | ED.GENMED ---
History of Present Illness
General
Chief Complaint: Dizziness
Source: patient
Exam Limitations: none
Time Seen by Provider: 02/10/25 20:06
Nursing documentation reviewed up to this point in time: agreed with
History of Present Illness
History of Present Illness:
39-year-old female history of lupus previously on steroids, none for about a month presents with fatigue dizziness nausea shortness of breath diarrhea worse with sitting up better while lying flat, has been crampy upper abdominal pain, she had her
appendix out stones or gallbladder does not drink or smoke told she had a low cortisol level referred to see an four roll calender operator has yet to schedule it sounds like a corticotropin stim test,
Past History
Past History
ED Past Medical History: Asthma (Sport induced), Fibromyalgia, GERD, Hypercholesterolemia, Seizures (Pseudoseizures), Psychiatric (panic attacks, anxiety disorder, PTSD,), Other (pseudoseizures, headaches, Barretts esophagitis, Gastritis, Scoliosis,
Endometriosis, 'dormant' Lyme's disease, chronic pelvic pain, Pyelonephritis, Hiatal hernia, Sarah, ) and Other (Thoracic outlet syndrome, Hiatal hernia, UTi, Cystitis, Optic neuritis, Pleurisy, Lupus)
ED Past Surgical History: Appendectomy, Gynecological (Laparoscopy 07/12/2014, Endometriiosis Surgery X 2), Tonsilectomy and Other (Sinus surgery)
Social History
Tobacco: Former smoker
Alcohol: None
Drug: None
Personal:
Living: with family
Employment: Not employed
Family History
Family History: Other (states had grandparents with heart problems in their 50's)
Review of Systems
Review of Systems
All Other Systems: Not applicable
Constitutional: Reports fatigue
Respiratory: Reports trouble breathing
Cardiac: Reports no symptoms
ABD/GI: Reports abdominal pain, nausea and diarrhea
: Reports no symptoms
Musculoskeletal: Reports muscle pain
Skin: Reports no symptoms
Neurological: Reports dizzy and weakness
Endocrine: Reports no symptoms; Denies polydipsia
Psychiatric: Reports no symptoms
Phy Exam
Physical Exam
Physical Exam:
Physical Exam
General: 39 female lying flat
Neck: No jaundice no goiter
Heart: s1/s2 regular rate and rhythm, no murmur. equal radial pulses.
Lungs: no acute respiratory distress. clear bilaterally
Abdomen: Mild epigastric
Neuro: alert and oriented. no focal neurological deficits
Skin: no rash
Psychiatric: well kept. interactive and cooperative
Extremities: no edema. no calf tenderness.
Course
Orders/Labs/Results
Orders:
Orders
02/10/25 15:56
ECG [Electrocardiogram (*1)] Urgent
Reason for Study: Vertigo / Dizzy
EKG- Treatment ONCE
02/10/25 16:19
Complete Blood Count/With Diff Urgent
Comprehensive Metabolic Panel Urgent
Cortisol, Random Urgent
Comment: ADD ON
Lipase Urgent
Comment: ADD ON
TSH Reflex To Free T4 Urgent
02/10/25 20:28
Add On- LAB Urgent
Tests Added?: random cortisol
Add On- LAB Urgent
Tests Added?: random cortisol
CR Chest - 2 Views Urgent
Comment:
Reason For Exam: sob
02/10/25 20:29
0.9% Sodium Chloride 1000 ml [Nss] 1,000 ml IV BOLUS
Ondansetron Injectable [Zofran] 4 mg IV NOW STA
Pantoprazole [Protonix IV] 40 mg IV NOW STA
02/10/25 20:30
Add On- LAB Urgent
Tests Added?: lipase
Abnormal Lab Results
02/10/25
16:19
WBC 4.6 L 10^3/uL
(4.8-10.8)
RBC 4.06 L 10^6/uL
(4.20-5.40)
MCH 31.3 H pg
(27.0-31.0)
Neutrophils % 41.8 L %
(42.2-75.2)
Chloride 108 H mmol/L
(98-107)
02/10/25 16:19
02/10/25 16:19
Vital Signs
Initial and Last Documented VS:
Initial Vital Signs
Temp Pulse Resp BP Pulse Ox
98 F 105 18 128/85 99
02/10/25 16:02 02/10/25 16:02 02/10/25 16:02 02/10/25 16:02 02/10/25 16:02
Last Documented Vital Signs
Temp Pulse Resp BP Pulse Ox
98 F 99 16 102/56 99
02/10/25 16:02 02/11/25 01:19 02/11/25 01:19 02/11/25 01:19 02/11/25 01:19
MDM/Problems Addressed
Differential Diagnosis Includes:
Dehydration pancreatitis biliary colic adrenal insufficiency medication effect other
MDM/Problems Addressed:
Abdominal pain dizziness nausea
Chronic conditions affecting care: Neurological disorder, Psychiatric illness and Other (Lupus steroid)
Acute Exacerbation and/or Progression of Chronic Illness: Neurological disorder, Psychiatric illness and Other (Lupus steroids)
*Radiology
Radiology exam reviewed: preliminary read by ED provider
*Pulse Oximetry
Patient hypoxic: no
*EKG
Interpreted by ED Provider?: Yes
Interpretation: normal
Comparison EKG: no comparison EKG present
Heart Rate: 78
Rate: normal
Rhythm: sinus
Ischemia: no ischemia
*Signs And Displays Salesperson Interpretation
Rate: normal
Interpretation: normal
Heart Rate: 78
Rhythm: sinus
*Critical Care Note
Total Time (30-74mins, 75-104mins- exclusive of procedures): Not Applicable
Update Note
Update Note:
Update, labs noted, patient refused ultrasound, she had numerous CAT scans previously random cortisol
Patient has a a.m. cortisol 4.1 on her phone
Have asked hospitalist to see the patient unsure if she needs a stim test versus empiric steroids
ED Attending Note
-
Portions of this chart may have been created with voice recognition software.� Occasional wrong word or��sound alike� substitutions may have occurred due to the inherent limitations of voice recognition software.
Discharge Plan
Departure
Patient Disposition: Admit
Date of Disposition: 02/11/25
Time of Disposition: 00:18
Admit to: Med/Surg
Presentation/result/management discussed w/ accepting MD/DO: Hospitalist
Patient with high blood pressure during this ER visit?: No
Condition: Fair
Discharge Problem:
Adrenal insufficiency
Prescriptions:
No Action
carisoprodol [Soma] 350 mg Tablet
350 mg PO TID PRN (Reason: muscle relaxer)
lamotrigine [Lamictal] 100 mg Tablet
50 mg PO DAILY
hydrocodone-acetaminophen [Vicodin] 5-300 mg Tablet
1 tab PO Q4H PRN (Reason: pain)
amphetamine sulfate [Evekeo] 5 mg Tablet
5 mg PO DAILY
Referrals:
Janey Collins, DO [Family Provider] -
Interventions
Interventions:
*Risk Screen - Suicide Last Done: 02/10/25 16:02
*General Assessment Last Done: 02/10/25 16:02
*Neglect/Abuse Screening Last Done: 02/10/25 16:02
*ED- Fall Risk Assessment Last Done: 02/10/25 20:24
*ED COVID-19 Vaccine History Last Done: 02/10/25 16:02
ED- Neurological Assessment Last Done: 02/10/25 20:24
ED Swallowing Screen Last Done: 02/10/25 20:24
Discharge Date and Time
Print Language: YI
[2025-02-10] MEDS: NSS 1000 IV (20:42)
[2025-02-10] MEDS: ZOFRAN 4 MG IV (20:44)
[2025-02-10] MEDS: PROTONIX IV 40 MG IV (20:44)
[2025-02-10 20:59] LABS: Lipase 290 U/L (23-300)
[2025-02-10 21:32] VITALS: BMI 25.4
[2025-02-10 21:33] VITALS: BP 121/78
[2025-02-11 01:19] VITALS: BP 102/56
--- NOTE | 2025-02-11 01:59 | HPS.HSE ---
Family Physician
-
Family Physician: Janey Collins
Chief Complaint
-
Weakness, Fatigue
History of Present Illness
Patient is a 39y F with PMH significant for endometriosis, PTSD and fibromyalgia who presents to ED complaining of weakness, palpitations, SOB and fatigue. Patient states that she has been having similar symptoms since August. She has been
evaluated by Rheum, Endocrine, PCP, Nephrology, etc. Patient states that she has been treated on multiple occasions with steroids which results in temporary improvement in her symptoms. She took her most recent steroid course - Medrol dose pack -
about 3 weeks ago.
Medical History
Past Medical History
Past Medical History: Reports Other
Additional Past Medical History:
GERD
Endometriosis
PTSD / Anxiety / Depression
Fibromyalgia
Past Surgical History: Reports Other
Additional Past Surgical History:
Ex Lap x 2
Sinus Surgery
Appendectomy
Social History
Tobacco: Former Smoker (Quit smoking about 10 years ago.)
Alcohol: None
Drug: None
Family History
Family History: Not pertinent
Allergies / Home Medications
Allergies reflects when Allergies were last updated in [employer] [facility].
Home Medications with original date entered in [employer] [facility]
Allergy/Medication List:
Allergies
Allergy/AdvReac Type Severity Reaction Status Date / Time
latex Allergy Itching Verified 02/10/25 16:05
morphine Allergy feeling of Verified 02/10/25 16:05
fullness
in legs
Home Medications
amphetamine sulfate 5 mg tablet (Evekeo) 5 mg PO DAILY 02/11/25
carisoprodol 350 mg tablet (Soma) 350 mg PO TID PRN muscle relaxer 02/11/25
hydrocodone 5 mg-acetaminophen 300 mg tablet 1 tab PO Q4H PRN pain 02/11/25
lamotrigine 100 mg tablet (Lamictal) 50 mg PO DAILY 02/11/25
Review of Systems
-
History Source: Patient
A 12 point ROS was completed and negative except as noted: Yes
Constitutional: Reports Weight Loss and Fatigue; Denies Fever or Chills
EENT: Denies Sore Throat
Respiratory: Reports Trouble Breathing; Denies Cough
Cardiac: Reports Palpitations; Denies Chest Pain or Syncope
Abdomen/GI: Reports Nausea, Vomiting (x 1 this AM.) and Diarrhea; Denies Abdominal Pain
: Denies Dysuria, Frequency or Flank Pain
Musculoskeletal: Reports Joint Pain; Denies Edema
Neurological: Reports Dizzy, Headache and Weakness; Denies Numbness
Psych: Denies Depression or Anxiety
Physical Exam
Vital Signs
Vital Signs
Temp Pulse Resp BP Pulse Ox
98 F 99 16 102/56 99
02/10/25 16:02 02/11/25 01:19 02/11/25 01:19 02/11/25 01:19 02/11/25 01:19
Physical Exam
General: Other (39y F in no acute distress.)
HEENT: Moist mucous membranes and PERRLA
Respiratory: Clear; No Wheezes, Rales or Rhonchi
Cardiac: S1/S2 and Regular Rhythm; No Murmur
GI: Soft, Non Tender, Non Distended and Normal Bowel Sounds
Musculoskeletal: No Clubbing, No Cyanosis and No Edema
Neuro: AO x 3 and Nonfocal/grossly intact
Laboratory Results
-
02/10/25 16:19
02/10/25 16:19
Laboratory Results
Total Bilirubin 0.4 mg/dl (0.2-1.3) 02/10/25 16:19
AST 20 U/L (14-36) 02/10/25 16:19
ALT 16 U/L (0-35) 02/10/25 16:19
Alkaline Phosphatase 40 U/L (38-126) 02/10/25 16:19
Lipase 290 U/L (23-300) 02/10/25 16:19
Impression/Plan
-
A/P: Patient is a 39y F with PMH significant for endometriosis, PTSD and fibromyalgia who presents to ED complaining of weakness, fatigue and palpitations.
Fatigue / Palpitations
Borderline Random Cortisol
- Observe overnight for further evaluation and treatment.
- Cortisol recently done as an outpatient was reportedly 4. Today's value is 8.
- Patient states that she was supposed to complete a stim test per Endocrine at [place].
- Has been on multiple courses of steroids since 08/2024.
- Check cosyntropin stim test for completeness.
- Follow-up with Endocrinology as an outpatient as planned.
PTSD
Anxiety / Depression
Fibromyalgia
- Current symptoms seem c/w major depression / anxiety (general achy pain, can't get OOB, palpitations / SOB).
- Continue Lamictal for now.
- Would consider alternate agents for mood / anxiety / depression if above endocrine evaluation is unremarkable.
GERD / Barlow's
- Stable. PPI daily.
DVT Prophylaxis: SCDs
Code Status: Full
[2025-02-11] MEDS: PLAQUENIL 200 MG PO ×2 (04:44→22:50)
[2025-02-11] MEDS: NORCO 5/325 1 TABLET PO ×5 (04:44→22:50)
[2025-02-11 04:47] VITALS: BP 126/70
--- NOTE | 2025-02-11 08:20 | W.PN.HOSP.TC ---
Today's Communication/Plan
-
Awaiting results of blood work
Assessment / Plan
Assessment / Plan
39y F with PMH significant for endometriosis, PTSD and fibromyalgia (and lupus) who presents complaining of weakness, palpitations, SOB and fatigue. Patient states that she has been having similar symptoms since August. She has been evaluated by
Rheum, Endocrine, PCP, Nephrology, etc. Patient states that she has been treated on multiple occasions with steroids which results in temporary improvement in her symptoms. She took her most recent steroid course - Medrol dose pack - about 3 weeks
ago.
Impression/Plan
1. Fatigue / Palpitations with Borderline Random Cortisol
- Cortisol recently done as an outpatient was reportedly 4. admit value was 8.
- Patient states that she was supposed to complete a stim test per Endocrine at [place].
- She Has been on multiple courses of steroids since 08/2024.
- Will wait results of cosyntropin stim test for completeness.
- Follow-up with Endocrinology as an outpatient as planned.
2. PTSD with Anxiety / Depression complicated by Fibromyalgia
- Current symptoms could be c/w major depression / anxiety (general achy pain, can't get OOB, palpitations / SOB).
- Continue Lamictal for now.
- Consider alternate agents for mood / anxiety / depression if above endocrine evaluation is unremarkable.
- consider outpatient Ketamine
3. GERD / Barlow's - Stable. PPI daily.
DVT Prophylaxis: SCDs
Code Status: Full
Anticipated Discharge: Within 24 hours
Subjective/Interval History
-
Date of Service: February 11, 2025
Feels about the same as when she came in.
Objective Data
-
Labs:
Laboratory Results
02/11/25
06:00
WBC Pending
Hgb Pending
Hct Pending
Plt Count Pending
Sodium Pending
Potassium Pending
Chloride Pending
Carbon Dioxide Pending
BUN Pending
Creatinine Pending
Glucose Pending
Calcium Pending
Vital Signs:
Vital Signs
Temp Pulse Resp BP Pulse Ox
98 F 91 16 126/70 97
02/10/25 16:02 02/11/25 04:47 02/11/25 04:47 02/11/25 04:47 02/11/25 04:47
Review of Systems
-
History Source: Patient
All other systems: Reviewed and negative
Physical Exam
-
General: Well Developed, Well Nourished, No Apparent Distress and Comfortable
HEENT: Normocephalic, Atraumatic and Moist Mucous Membranes
Respiratory: Clear to Auscultation
Cardiac: Regular Rhythm and S1/S2
GI: Soft, Nontender and Nondistended
Musculoskeletal: No Clubbing, No Cyanosis and No Edema
Skin: Warm and Dry; Negative Rash or Ulcers
Neuro: Awake, Alert, Oriented and AO x 3
Psych: Calm
Data Reviewed
-
Labs: Labs Reviewed by me
[2025-02-11] MEDS: LAMICTAL 50 MG PO (08:47)
[2025-02-11 09:22] LABS: ACTH Stim Cortisol 0 Min 12.8 ug/dl
[2025-02-11 09:46] VITALS: BP 122/64
--- NOTE | 2025-02-11 10:34 | CM ---
Initial Assessment completed at bedside in ED; Outpatient Observation Status Notice explained and signed @ 1030
Pharmacy verified: [facility] @ [address] [facility]
Lives with and 2 children (8 and 4); multilevel home; 2 steps to enter; steps to 2nd floor unknown; railings on stairs; powder room 1st floor; 2nd floor bath has tub/shower
PLOF: reports she is independent with ambulation, stairs, and ADLs
DME: has a cane; has not needed to use it in the past 2 months
will transport home
Plan: Discharge to Home when medically stable; CM will monitor for needs
[2025-02-11] MEDS: NSS (PRESERVATIVE FREE) 1 ML IV (10:41)
[2025-02-11] MEDS: CORTROSYN 0.25 MG IV (10:41)
[2025-02-11 11:59] VITALS: BP 119/82
[2025-02-11 12:12] LABS: Hematocrit 36.5 % (37.0-47.0); Hemoglobin 12.6 g/dL (12.0-16.0); Mean Corp Hgb Conc. 34.5 g/dL (33.0-37.0); Mean Corpuscular Hgb 31.7 pg (27.0-31.0); Mean Corpuscular Volume 91.7 fL (81.0-99.0); Mean Platelet Volume 9.1 fL (7.4-10.4); Platelet Count 275 10^3/uL (130-400); Red Blood Cell Count 3.98 10^6/uL (4.20-5.40); Red Cell Dist. Width 11.6 % (11.5-14.5); White Blood Cell Count 3.9 10^3/uL (4.8-10.8)
[2025-02-11 12:21] LABS: ACTH Stim Cortisol 30 Min 18.7 ug/dl
[2025-02-11 12:32] LABS: Blood Urea Nitrogen 7 mg/dl (7-17); Calcium 9.1 mg/dl (8.4-10.2); Carbon Dioxide 23 mmol/L (22-30); Chloride 109 mmol/L (98-107); Estimated Creatinine Clearance 116 ml/min; Glucose 89 mg/dl (70-99); Magnesium 2.2 mg/dl (1.6-2.3); Potassium 4.2 mmol/L (3.5-5.1); Sodium 141 mmol/L (135-145); eGFR > 60.00
[2025-02-11] MEDS: ZOFRAN 4 MG IV (13:12)
[2025-02-11] MEDS: METHOCARBAMOL 750 MG PO ×2 (13:19→22:50)
[2025-02-11 13:25] LABS: ACTH Stim Cortisol 60 Min 22.7 ug/dl
--- NOTE | 2025-02-11 15:21 | PTCARENOTE ---
Report sent to [facility] notified.
--- NOTE | 2025-02-11 16:37 | PTCARENOTE ---
Assumed c/o pt at aprox 1600. Pt has bed on [address]. Awaiting transport.
[2025-02-11 18:03] VITALS: BP 125/79; BMI 24.0
[2025-02-11] MEDS: NORCO 5/325 PO (22:23)
[2025-02-11 23:45] VITALS: BP 98/62
[2025-02-12] MEDS: NORCO 5/325 PO ×4 (00:58→17:25)
[2025-02-12 05:22] LABS: Blood Urea Nitrogen 8 mg/dl (7-17); Calcium 9.2 mg/dl (8.4-10.2); Carbon Dioxide 29 mmol/L (22-30); Chloride 107 mmol/L (98-107); Estimated Creatinine Clearance 99 ml/min; Glucose 94 mg/dl (70-99); Magnesium 2.2 mg/dl (1.6-2.3); Potassium 4.2 mmol/L (3.5-5.1); Sodium 142 mmol/L (135-145); eGFR > 60.00
[2025-02-12 07:39] VITALS: BP 109/68
--- NOTE | 2025-02-12 07:58 | CON.NEURO ---
Consultation
Order
Date of Consultation: 02/12/25
Requesting Provider: Julio Elena MD
Reason for Consult: Balance problems, urinary problems, labile mood, visual changes,
Neurology Consultation Note.
HPI: This is a 39-year-old woman who presented to [facility] on 02/10/2025 with multiple complaints.
The patient presents endorses weakness, fatigue, and overall malaise. On Thursday, Ms. Aguilar reportedly sustained an unwitnessed fall when her right leg gave out while descending stairs. The patient denies loss of consciousness during the fall. February
reports that her leg is now functional.
The patient reports experiencing headaches, which have been more severe recently. The bifrontal dull nonpositional headaches began on Thursday morning.
On Thursday, the patient felt extremely unwell, unable to get out of bed, and experienced dyspnea when climbing stairs. She also reported feeling cold, chills, diarrhea, one episode of vomiting, and dizziness while sitting.
The patient has a history of lupus, treated with hydroxychloroquine. Ms. Aguilar was getting workup for Coleman's disease due to low cortisol levels.
February started Lamictal a month ago for mood stabilization related to PTSD and trauma therapy. She reports mood changes since August, along with painful and irregular menstrual periods, possibly related to endometriosis.
The patient has experienced blurred vision in the right eye since August and reports difficulty urinating unless leaning forward and applying pressure to the abdomen. These symptoms worsened in August, coinciding with difficulty walking. The
patient notes that stress exacerbates her symptoms, and she struggles with prolonged walking, especially in heat, which causes leg fullness and erythema of the feet. The patient denies double vision or tingling/numbness unless
ER VS: 128/85, 105, afebrile.
EKG:NSR, QTc Int : 423 ms
PDMP: Amphetamine Sulfate 10 Mg 90 tablets filled in on 01/24/2025, Hydrocodone-Acetamin 5-325 Mg 180 tablets filled in on 01/18/2025, Carisoprodol 350 Mg 120 tabs filled in on 01/07/2025.
Labs: WBCs�4.6, unremarkable
Brain MRI w/wo primitivo(04/21/2022) 2 foci of increased T2 signal intensity in the deep white matter of the right parietal lobe, without enhancement.
PMH: inflammatory arthropathy, chronic pain syndrome, Barlow's esophagus, endometriosis, PRIMITIVO, MDD, PTSD, fibromyalgia
PSH: bilateral medial maxillary antrostomies and bilateral ethmoidectomies, appendectomy, laparoscopy, tonsillectomy
SH: , has 2 children, [id number] mother, former caregiver, former smoker, [id number] mother
FH: Father�prostate cancer, mother�estranged
All: Morphine, latex
ROS: Positive for fatigue
HENT: Negative for ear pain, hearing loss and trouble swallowing.
Eyes: Positive for blurred vision
Respiratory: Positive for dyspnea
Cardiovascular: Positive for dizziness
Gastrointestinal: Positive for diarrhea, vomiting
Endocrine: Negative. Negative for cold intolerance.
Genitourinary: Positive for irregular menstrual periods
Musculoskeletal: Negative for back pain, gait problem, neck pain and neck stiffness.
Skin: Negative for rash.
Allergic/Immunologic: Negative. Negative for immunocompromised state.
Neurological: Positive for fall, weakness, headache
General: Well developed. In no acute distress.
Cardio: Regular rate and rhythm without murmur. Extremities are without cyanosis or edema.
Neuro:
Mental Status: Alert, oriented to person, place, and date. Normal attention and recall. Good fund of knowledge. Follows complex requests across the midline. Comprehension, naming, and repetition intact. Immediate and delayed recall 3/3.
Cranial Nerves: Pupils are equally round and reactive to light. EOMs full. Visual kraus full to confrontation. No ptosis. No nystagmus. V1-V3 intact to light touch and pinprick bilaterally, symmetric. Face symmetric. Normal hearing AU. The
palate elevated well. SCMs and traps 5/5. Tongue midline. No dysarthria.
Motor: Normal bulk and tone. No pronator or arm drift. Strength 5/5 throughout. No clonus.
Reflexes: 2+ throughout the upper extremities and 0 knees. 0/2 in AJs. Plantar responses flexor bilaterally.
Sensory: Normal vibration and JPS.
Coordination: No dysmetria or tremor.
Gait: deferred
Assessment and Plan:
I. Status post unwitnessed fall
II. Chronic pain syndrome
III. Sinus headache
-Fall precautions
-Please check TFTs, myopathy panel
-Brain MRI wo primitivo given prior abnormal brain MRI and right visual symptoms
-Avoid myotoxic medications
-IV Toradol 30 mg, Reglan 10 mg, Benadryl 25 mg Q8h PRN for moderate to severe headache.
-Outpatient NCS/EMG with [facility]
-PT
I personally reviewed all radiology and labs along with past medical records pertinent to current medical problems. Total time spent in patient care is 60 minutes.
Thank you for allowing us to participate in the care of this patient. We will continue to follow. Please do not hesitate to contact us with any questions or concerns.
Subjective/Objective
Subjective Data
Date of Service: February 12, 2025
Objective Data
Vital Signs
Temp Pulse Resp BP Pulse Ox
36.3 C 71 16 109/68 98
02/12/25 07:39 02/12/25 07:39 02/12/25 07:39 02/12/25 07:39 02/12/25 07:39
Lab Results
02/11/25 11:57
02/12/25 04:30
Sodium 142 mmol/L (135-145) 02/12/25 04:30
Potassium 4.2 mmol/L (3.5-5.1) 02/12/25 04:30
BUN 8 mg/dl (7-17) 02/12/25 04:30
Glucose 94 mg/dl (70-99) 04/06/25 04:30
Calcium 9.2 mg/dl (8.4-10.2) 02/12/25 04:30
Patient Allergies
latex Allergy (Verified 02/10/25 16:05)
Itching
morphine Allergy (Verified 02/10/25 16:05)
feeling of fullness in legs
Medications
-
Active Medications
Generic Name Dose Route Start Last Admin
Trade Name Freq PRN Reason Stop Dose Admin
Acetaminophen 650 mg 02/11/25 03:11
Acetaminophen 325 Mg Tablet PO 03/11/25 03:10
Q4HPRN PRN
Mild Pain / Temp > 101
Hydrocodone Bitart/Acetaminophen 1 tablet 02/11/25 04:45 02/12/25 06:19
Hydrocodone 5 Mg/Acetaminophen 325 Mg Tablet PO 02/25/25 04:44 Not Given
Q4H CECY
Hydroxychloroquine Sulfate 200 mg 02/11/25 22:00 02/11/25 22:50
Hydroxychloroquine 200 Mg Tablet PO 03/11/25 21:59 200 mg
HS CECY Administration
Lamotrigine 50 mg 02/11/25 08:00 02/11/25 08:47
Lamotrigine 100 Mg Tablet PO 03/11/25 07:59 50 mg
DAILY CECY Administration
Methocarbamol 750 mg 02/11/25 12:54 02/11/25 22:50
Methocarbamol 750 Mg Tablet PO 03/11/25 12:53 750 mg
TIDPRN PRN Administration
pain
Ondansetron HCl 4 mg 02/11/25 12:29 02/11/25 13:12
Ondansetron 4 Mg/2 Ml Vial IV 03/11/25 12:28 4 mg
Q6HPRN PRN Administration
NAUSEA/VOMITING
Pantoprazole Sodium 40 mg 02/11/25 08:00 02/11/25 08:44
Pantoprazole 40 Mg Delayed Release Tablet PO 03/11/25 07:59 Not Given
DAILY CECY
Home Medications
�Medication �Instructions �Recorded
amphetamine sulfate 5 mg tablet 5 mg PO DAILY ADHD 02/11/25
(Evekeo)
carisoprodol 350 mg tablet (Soma) 350 mg PO TID PRN muscle relaxer 02/11/25
hydrocodone 5 mg-acetaminophen 300 1 tab PO Q4H PRN pain 02/11/25
mg tablet
hydroxychloroquine 200 mg PO HS Anti-Inflammatory 02/11/25
lamotrigine 100 mg tablet 50 mg PO DAILY Seizures 02/11/25
(Lamictal)
Vital Signs and Labs
-
Vital Signs and Labs:
Vital Signs
Temp Pulse Resp BP Pulse Ox
36.3 C 71 16 109/68 98
02/12/25 07:39 02/12/25 07:39 02/12/25 07:39 02/12/25 07:39 02/12/25 07:39
Lab Results
02/11/25 11:57
02/12/25 04:30
Sodium 142 mmol/L (135-145) 02/12/25 04:30
Potassium 4.2 mmol/L (3.5-5.1) 02/12/25 04:30
BUN 8 mg/dl (7-17) 02/12/25 04:30
Glucose 94 mg/dl (70-99) 02/12/25 04:30
Calcium 9.2 mg/dl (8.4-10.2) 02/12/25 04:30
Medications
-
Medications:
Generic Name Dose Route Start Last Admin
Trade Name Freq PRN Reason Stop Dose Admin
Acetaminophen 650 mg 02/11/25 03:11
Acetaminophen 325 Mg Tablet PO 03/11/25 03:10
Q4HPRN PRN
Mild Pain / Temp > 101
Hydrocodone Bitart/Acetaminophen 1 tablet 02/11/25 04:45 02/12/25 08:03
Hydrocodone 5 Mg/Acetaminophen 325 Mg Tablet PO 02/25/25 04:44 1 tablet
Q4H CECY Administration
Hydroxychloroquine Sulfate 200 mg 02/11/25 22:00 02/11/25 22:50
Hydroxychloroquine 200 Mg Tablet PO 03/11/25 21:59 200 mg
HS CECY Administration
Lamotrigine 50 mg 02/11/25 08:00 02/12/25 08:03
Lamotrigine 100 Mg Tablet PO 03/11/25 07:59 50 mg
DAILY CECY Administration
Methocarbamol 750 mg 02/11/25 12:54 02/11/25 22:50
Methocarbamol 750 Mg Tablet PO 03/11/25 12:53 750 mg
TIDPRN PRN Administration
pain
Ondansetron HCl 4 mg 02/11/25 12:29 02/11/25 13:12
Ondansetron 4 Mg/2 Ml Vial IV 03/11/25 12:28 4 mg
Q6HPRN PRN Administration
NAUSEA/VOMITING
Pantoprazole Sodium 40 mg 02/11/25 08:00 02/12/25 08:10
Pantoprazole 40 Mg Delayed Release Tablet PO 03/11/25 07:59 Not Given
DAILY CECY
Home Medications
-
Home Medications
amphetamine sulfate 5 mg tablet (Evekeo) 5 mg PO DAILY ADHD 02/11/25
carisoprodol 350 mg tablet (Soma) 350 mg PO TID PRN muscle relaxer 02/11/25
hydrocodone 5 mg-acetaminophen 300 mg tablet 1 tab PO Q4H PRN pain 02/11/25
hydroxychloroquine 200 mg PO HS Anti-Inflammatory 02/11/25
lamotrigine 100 mg tablet (Lamictal) 50 mg PO DAILY Seizures 02/11/25
[2025-02-12] MEDS: LAMICTAL 50 MG PO (08:03)
[2025-02-12] MEDS: NORCO 5/325 1 TABLET PO ×2 (08:03→21:43)
[2025-02-12] MEDS: IMITREX 25 MG PO (08:31)
[2025-02-12 10:36] LABS: Prolactin 22.4 ng/ml (3.0-18.6)
[2025-02-12 10:50] LABS: TSH Reflex To Free T4 0.68 uIU/ml (0.47-4.68)
[2025-02-12 12:08] LABS: Creatine Phosphokinase 41 U/L (30-135)
[2025-02-12 12:13] LABS: C-Reactive Protein < 5.00 mg/L (0.0-10.00)
[2025-02-12 13:02] LABS: Erythrocyte Sed Rate 3 mm/hour (0-20)
--- NOTE | 2025-02-12 13:40 | W.PN.HOSP.TC ---
Today's Communication/Plan
-
Awaiting MRI and blood work results
Assessment / Plan
Assessment / Plan
39y F with PMH significant for:
endometriosis,
PTSD
fibromyalgia
lupus
who presents complaining of weakness, palpitations, SOB and fatigue. Patient states that she has been having similar symptoms since August. She has been evaluated by Rheum, Endocrine, PCP, Nephrology, etc. Patient states that she has been
treated on multiple occasions with steroids which results in temporary improvement in her symptoms. She took her most recent steroid course - Medrol dose pack - about 3 weeks ago.
Impression/Plan
1. Fatigue / Palpitations with Borderline Random Cortisol
- Cortisol recently done as an outpatient was reportedly 4. admit value was 8.
- Patient states that she was supposed to complete a stim test per Endocrine at [facility].
- She Has been on multiple courses of steroids since 08/2024.
- results of cosyntropin stim test here was normal
- Follow-up with Endocrinology as an outpatient as planned.
She stated her breasts were larger and she had discharge and vision changes
Neuro consulted to r/o pituitary adenoma and/or increased intracranial pressure.
MRI pending
Labs pending
2. PTSD with Anxiety / Depression complicated by Fibromyalgia
- Current symptoms could be c/w major depression / anxiety (general achy pain, can't get OOB, palpitations / SOB).
- Continue Lamictal for now.
- Consider alternate agents for mood / anxiety / depression if above endocrine evaluation is unremarkable.
- consider outpatient Ketamine
3. GERD / Barlow's - Stable. PPI daily.
4. Migraine headaches. - sumatripan as needed
DVT Prophylaxis: SCDs
Code Status: Full
Anticipated Discharge: 24 - 48 hours
Subjective/Interval History
-
Date of Service: February 12, 2025
Had migraine headache today. Migraine medicine given.
Objective Data
-
Labs:
Laboratory Results
02/12/25
04:30
Sodium 142
Potassium 4.2
Chloride 107
Carbon Dioxide 29
BUN 8
Creatinine 0.7
Glucose 94
Calcium 9.2
Vital Signs:
Vital Signs
Temp Pulse Resp BP Pulse Ox
97.3 F 71 16 109/68 98
02/12/25 07:39 02/12/25 07:39 02/12/25 07:39 02/12/25 07:39 02/12/25 07:39
I&O
02/11/25 02/12/25 02/13/25
06:59 06:59 06:59
Intake Total 480 / 480
Balance 480 / 480
Review of Systems
-
Unable to obtain full review of systems at this time due to: Other (patient finally able to fall asleep, I did not awaken her.)
Physical Exam
-
General: Well Developed, Well Nourished, No Apparent Distress and Comfortable
HEENT: Nose Appears Normal and Ears Appear Normal
Respiratory: Other (regualr respirations)
Skin: Dry
Neuro: Other (Sleeping comfortably)
Psych: Calm
Data Reviewed
-
Labs: Labs Reviewed by me
[2025-02-12 14:59] LABS: Amphetamines Negative (Negative); Barbiturates Negative (Negative); Benzodiazepines Negative (Negative); Buprenorphine Negative (Negative); Cocaine Negative (Negative); Marijuana Negative (Negative); Methadone Negative (Negative); Methamphetamines Negative (Negative); Opiates Positive (Negative); Phencyclidine Negative (Negative); Tricyclic Antidepressants Negative (Negative)
[2025-02-12 15:29] LABS: Fentanyl, Urine Negative (Negative)
[2025-02-12 16:00] VITALS: BP 103/71
--- NOTE | 2025-02-12 18:30 | PTCARENOTE ---
Patient stated that she felt as though she was having palpations that caused discomfort that went to her head, which then made her feel anxious/ SOB. Vitals taken and WNR. Pt with H Anxiety. made aware of patient's complaints. MD came on the
floor to assess patient, no new orders. Pt denied similar symptoms for remainder of shift. Checked frequently throughout shift, call carver within reach.
[2025-02-12] MEDS: ZOFRAN 4 MG IV (18:32)
[2025-02-12] MEDS: PLAQUENIL 200 MG PO (21:43)
[2025-02-12] MEDS: METHOCARBAMOL 750 MG PO (21:43)
[2025-02-12] MEDS: REGLAN 10 MG IV (22:48)
[2025-02-12] MEDS: TORADOL 30 MG IV (22:49)
[2025-02-12] MEDS: BENADRYL 25 MG IV (22:50)
[2025-02-12 23:00] VITALS: BP 106/65
[2025-02-13] MEDS: NORCO 5/325 PO ×2 (01:10→04:57)
--- NOTE | 2025-02-13 05:01 | PTCARENOTE ---
Patient complaining of headache. Patient has Tylenol ordered PRN, does not want it. Patient showed this RN a report on her phone from a neurologist here, Dr. Felicitas Lundy, and she said she needs Reglan, Toradol, and Benadryl. LIBBY Patton
notified. See MAR.
[2025-02-13] MEDS: NORCO 5/325 1 TABLET PO ×2 (07:27→12:35)
[2025-02-13] MEDS: LAMICTAL 50 MG PO (07:27)
[2025-02-13] MEDS: METHOCARBAMOL 750 MG PO (07:33)
[2025-02-13 07:43] VITALS: BP 107/66
--- NOTE | 2025-02-13 10:57 | CM ---
Patient seen at bedside
Chart reviewed
PLAN: Home, no needs anticipated when medically stable
dad or will transport
[2025-02-13 11:55] VITALS: BP 105/60
--- NOTE | 2025-02-13 12:19 | PTCARENOTE ---
Pt c/o headache and migraine. Neurologist gas collection system operator made aware.
[2025-02-13] MEDS: TORADOL 30 MG IV (12:34)
[2025-02-13] MEDS: BENADRYL 25 MG IV (12:35)
[2025-02-13] MEDS: REGLAN 10 MG IV (12:35)
--- NOTE | 2025-02-13 13:53 | W.DS.TRANS ---
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
-
Discharge Instructions:
Discharge Diagnosis/Procedures Chronic pain
Diet Regular
Instructions:
Stand-Alone Forms:
Changes to Home Medications: No
Discharge Medications:
DC Medications w/original date entered in [facility]
amphetamine sulfate 5 mg tablet (Evekeo) 5 mg PO DAILY ADHD 02/11/25
carisoprodol 350 mg tablet (Soma) 350 mg PO TID PRN muscle relaxer 02/11/25
hydrocodone 5 mg-acetaminophen 300 mg tablet 1 tab PO Q4H PRN pain 02/11/25
hydroxychloroquine 200 mg PO HS Anti-Inflammatory 02/11/25
lamotrigine 100 mg tablet (Lamictal) 50 mg PO DAILY Seizures 02/11/25
Home Medication Changes
Pending Results: No
[2025-02-13 13:57] VITALS: BP 105/60
[2025-02-14 12:29] LABS: Lamotrigine (Lamictal) 1.2 ug/mL (3.0-15.0)
== END 2025-02-13 14:06 | disposition home or self-care (01) ==
LOC: 3 WEST ACU 02:14
PROVIDERS: Internal Medicine; ADMITTING PHYSICIAN Hospitalist; ATTENDING PHYSICIAN Internal Medicine; CONSULT PHYSICIAN Psychiatry & Neurology Neurology; EMERGENCY PHYSICIAN Emergency Medicine; FAMILY PHYSICIAN Internal Medicine
DX: G89.4 Chronic pain syndrome (principal); R42 Dizziness and giddiness; R00.2 Palpitations; R26.89 Other abnormalities of gait and mobility; R53.81 Other malaise; H53.8 Other visual disturbances; M32.9 Systemic lupus erythematosus, unspecified; E78.00 Pure hypercholesterolemia, unspecified; M79.7 Fibromyalgia; J45.909 Unspecified asthma, uncomplicated; M41.9 Scoliosis, unspecified; K21.9 Gastro-esophageal reflux disease without esophagitis; F41.9 Anxiety disorder, unspecified; F43.10 Post-traumatic stress disorder, unspecified; N80.9 Endometriosis, unspecified; E27.40 Unspecified adrenocortical insufficiency; R53.1 Weakness; R53.83 Other fatigue; F32.9 Major depressive disorder, single episode, unspecified; R10.2 Pelvic and perineal pain; H46.9 Unspecified optic neuritis; G54.0 Brachial plexus disorders; W10.8XXA Fall (on) (from) other stairs and steps, initial encounter; Y93.9 Activity, unspecified; Y92.9 Unspecified place or not applicable; F41.1 Generalized anxiety disorder; K22.70 Barrett's esophagus without dysplasia; G43.909 Migraine, unspecified, not intractable, without status migrainosus; Z87.19 Personal history of other diseases of the digestive system; Z87.440 Personal history of urinary (tract) infections; Z87.891 Personal history of nicotine dependence; Z90.49 Acquired absence of other specified parts of digestive tract; Z91.040 Latex allergy status; Z88.5 Allergy status to narcotic agent; Z79.899 Other long term (current) drug therapy; Z90.89 Acquired absence of other organs
CPT/HCPCS: 70551; 71046; 80048; 80053; 80175; 80306; 80307; 82533; 82550; 83690; 83735; 84146; 84443; 85025; 85027; 85652; 86041; 86140; 93005; 96361; 96374; 96375; 99285; G0378

== ENCOUNTER → 2025-05-30 16:46 | Outpatient (REF) | payer OTHER, SELFPAY | LOC: WDC 16:46 | PROVIDERS: ATTENDING PHYSICIAN Obstetrics & Gynecology Gynecology; FAMILY PHYSICIAN Internal Medicine | DX: Z12.31 Encounter for screening mammogram for malignant neoplasm of breast (principal) | CPT/HCPCS: 77063; 77067 ==

== ENCOUNTER → 2025-06-07 08:45 | Outpatient (REF) | payer OTHER, SELFPAY | LOC: WDC 08:45 | PROVIDERS: ATTENDING PHYSICIAN Obstetrics & Gynecology Gynecology; FAMILY PHYSICIAN Internal Medicine | DX: R92.8 Other abnormal and inconclusive findings on diagnostic imaging of breast (principal) | CPT/HCPCS: 76642 ==

== ENCOUNTER → 2025-06-07 10:06 | Outpatient (REF) | payer OTHER, SELFPAY | LOC: HWRAD 10:06 | PROVIDERS: ATTENDING PHYSICIAN Obstetrics & Gynecology Gynecology; FAMILY PHYSICIAN Internal Medicine | DX: N94.12 Deep dyspareunia (principal) | CPT/HCPCS: 76830; 76856 ==

== ENCOUNTER → 2025-06-16 09:24 | Outpatient (REF) | payer OTHER, SELFPAY ==
--- NOTE | 2025-06-16 13:33 | OID.BR.INTR ---
ALEXSANDRAD Breast Navigator - Initial
- -
Date of Contact: 06/16/25
Met with patient. Patient given written information on navigator service available at [facility]. Will follow up as needed per protocol.
== END ==
LOC: WDC 09:24
PROVIDERS: ATTENDING PHYSICIAN Obstetrics & Gynecology Gynecology; FAMILY PHYSICIAN Internal Medicine
DX: N63.24 Unspecified lump in the left breast, lower inner quadrant (principal)
CPT/HCPCS: 19083; 88305; A4648

== ENCOUNTER 2025-08-03 12:45 | Emergency (ER) | payer OTHER, SELFPAY ==
[2025-08-03 12:46] VITALS: BP 144/84
--- NOTE | 2025-08-03 13:15 | ED.GENMED ---
History of Present Illness
General
Chief Complaint: Fatigue
Time Seen by Provider: 08/03/25 13:15
History of Present Illness
History of Present Illness:
Patient presents to the emergency department with multiple complaints. She has history of chronic pain and lupus. She states that she had a sinus infection last week. Her whole family was sick at home with similar symptoms she started on
amoxicillin and methylprednisolone by urgent care. She reports since then feeling very fatigued, diffuse bodyaches, fullness in her lower extremities and worsening of her chronic pain. No fevers. No chest pain or shortness of breath.
Past History
Past History
ED Past Medical History: Asthma (Sport induced), Fibromyalgia, GERD, Hypercholesterolemia, Seizures (Pseudoseizures), Psychiatric (panic attacks, anxiety disorder, PTSD,), Other (pseudoseizures, headaches, Barretts esophagitis, Gastritis, Scoliosis,
Endometriosis, 'dormant' Lyme's disease, chronic pelvic pain, Pyelonephritis, Hiatal hernia, Sarah, ) and Other (Thoracic outlet syndrome, Hiatal hernia, UTi, Cystitis, Optic neuritis, Pleurisy, Lupus)
ED Past Surgical History: Appendectomy, Gynecological (Laparoscopy 07/12/2014, Endometriiosis Surgery X 2), Tonsilectomy and Other (Sinus surgery)
Social History
Tobacco: Former smoker
Alcohol: None
Drug: None
Personal:
Living: with family
Employment: Not employed
Family History
Family History: Other (states had grandparents with heart problems in their 50's)
Phy Exam
Physical Exam
Physical Exam:
GENERAL APPEARANCE: Tired appearing, laying in stretcher with her eyes closed
EYES lids/conjunctiva normal
EARS/NOSE/THROAT Mucous membranes moist, uvula midline without oral pharyngeal erythema, exudate or swelling
HEAD/NECK normocephalic atraumatic, neck is supple.
RESPIRATORY respiratory effort normal, speaks in full sentences, no accessory muscle use. Lungs clear to auscultation without rhonchi, wheezes, rales
CARDIAC Regular rate and rhythm, no edema.
ABDOMINAL Soft, ND/NT.
MUSCLES/EXTREMITIES No abnormal range of motion, no swelling, no joint effusions or erythema
SKIN Warm, pink and dry. No rashes
NEUROLOGICAL Speech is clear and appropriate. Normal level of consciousness. 5/5 strength in all extremities.
PSYCH Normal mood and affect. Judgement/competence is appropriate
Course
Orders/Labs/Results
Orders:
Orders
08/03/25 13:31
0.9% Sodium Chloride 1000 ml [Nss] 1,000 ml IV BOLUS
08/03/25 13:33
Test Result ONCE
08/03/25 13:42
Basic Metabolic Panel Urgent
CBC/With Diff [Complete Blood Count/With Diff] Urgent
CRP [C-Reactive Protein] Urgent
ESR [Erythrocyte Sed Rate] Urgent
HCG, Serum Qualitative Screen Urgent
Total CK [Creatine Phosphokinase] Urgent
08/03/25 13:53
Magnesium Sulfate 1 G/D5w [Magnesium Sulfate] 1 gm in 100 ml IV NOW
08/03/25 14:06
Urinalysis Reflex To Culture Urgent
Date Specimen was Collected: 08/03/25
Time Specimen was Collected: 14:05
08/03/25 15:23
Prednisone [Deltasone] 20 mg PO NOW STA
Abnormal Lab Results
08/03/25
13:42
RBC 4.06 L 10^6/uL
(4.20-5.40)
Hct 36.9 L %
(37.0-47.0)
MCH 31.3 H pg
(27.0-31.0)
Creatinine 0.5 L mg/dL
(0.6-1.0)
Creatine Kinase < 20 L U/L
(30-135)
08/03/25 13:42
08/03/25 13:42
Vital Signs
Initial and Last Documented VS:
Initial Vital Signs
Temp Pulse Resp BP Pulse Ox
98.2 F 85 16 144/84 98
08/03/25 12:46 08/03/25 12:46 08/03/25 12:46 08/03/25 12:46 08/03/25 12:46
Last Documented Vital Signs
Temp Pulse Resp BP Pulse Ox
98.2 F 85 16 144/84 98
08/03/25 12:46 08/03/25 12:46 08/03/25 12:46 08/03/25 12:46 08/03/25 13:35
*Pulse Oximetry
SaO2: 98
Oxygen Mode of Delivery: Room air
Patient hypoxic: no
*Critical Care Note
Total Time (30-74mins, 75-104mins- exclusive of procedures): Not Applicable
ED Attending Note
ED Attending Note
ED Attending Note:
Patient presents with diffuse bodyaches and fatigue after recent upper respiratory infection while on amoxicillin. She is nontoxic-appearing, hemodynamically stable. No evidence of sepsis blood work. She does report a history of lupus and her
symptoms could be consistent with a mild lupus flare. She states this is typically treated with magnesium and prednisone. I instructed her to follow-up closely with her chalk machine operator.
-
Portions of this chart may have been created with voice recognition software.� Occasional wrong word or��sound alike� substitutions may have occurred due to the inherent limitations of voice recognition software.
Discharge Plan
Departure
Patient Disposition: Home (Routine Discharge)
Date of Disposition: 08/03/25
Time of Disposition: 15:25
Patient with high blood pressure during this ER visit?: Yes
Discharge Problem:
Generalized body aches
Instructions: Lupus
Prescriptions:
New
prednisone 20 mg tablet
20 mg PO DAILY Qty: 4 0RF
No Action
carisoprodol [Soma] 350 mg Tablet
350 mg PO TID PRN (Reason: muscle relaxer)
lamotrigine [Lamictal] 100 mg Tablet
50 mg PO DAILY
hydrocodone-acetaminophen 5-300 mg Tablet
1 tab PO Q4H PRN (Reason: pain)
amphetamine sulfate [Evekeo] 5 mg Tablet
5 mg PO DAILY
hydroxychloroquine
200 mg PO HS
Referrals:
Janey Collins DO [Family Provider, Internal Medicine]
Interventions
Interventions:
*Risk Screen - Suicide Last Done: 08/03/25 12:46
*General Assessment Last Done: 08/03/25 14:15
*Neglect/Abuse Screening Last Done: 08/03/25 12:46
*ED- Fall Risk Assessment Last Done: 08/03/25 14:15
Discharge Date and Time
Print Language: HEBREW
[2025-08-03 14:07] LABS: Hematocrit 36.9 % (37.0-47.0); Hemoglobin 12.7 g/dL (12.0-16.0); Mean Corp Hgb Conc. 34.4 g/dL (33.0-37.0); Mean Corpuscular Volume 90.9 fL (81.0-99.0); Nucleated Red Blood Cells % 0 %; Platelet Count 319 10^3/uL (130-400); Red Cell Dist. Width 11.7 % (11.5-14.5)
[2025-08-03 14:13] LABS: Urine Character Clear (Clear)
[2025-08-03] MEDS: MAGNESIUM SULFATE 100 IV (14:13)
[2025-08-03] MEDS: NSS 1000 IV (14:13)
[2025-08-03 14:21] LABS: HCG, Serum Qualitative Screen Negative
[2025-08-03 14:23] LABS: Blood Urea Nitrogen 10 mg/dl (7-17); Calcium 8.8 mg/dl (8.4-10.2); Carbon Dioxide 25 mmol/L (22-30); Chloride 106 mmol/L (98-107); Glucose 98 mg/dl (70-99); Potassium 4.2 mmol/L (3.5-5.1); Sodium 136 mmol/L (135-145); eGFR > 60.00
[2025-08-03 15:27] LABS: C-Reactive Protein < 5.00 mg/L (0.0-10.00)
[2025-08-03] MEDS: DELTASONE 20 MG PO (15:42)
== END 2025-08-03 17:06 | disposition home or self-care (01) ==
LOC: EMR 12:45
PROVIDERS: EMERGENCY PHYSICIAN Emergency Medicine; FAMILY PHYSICIAN Internal Medicine
DX: G89.29 Other chronic pain (principal); R53.83 Other fatigue; M32.9 Systemic lupus erythematosus, unspecified; E78.00 Pure hypercholesterolemia, unspecified; J45.909 Unspecified asthma, uncomplicated; Z87.891 Personal history of nicotine dependence
CPT/HCPCS: 96365; 99284; 80048; 81003; 82550; 84703; 85025; 85652; 86140

== ENCOUNTER → 2025-08-30 09:08 | Outpatient (REF) | payer OTHER, SELFPAY | LOC: WDC 09:08 | PROVIDERS: ATTENDING PHYSICIAN Registered Nurse Oncology | DX: R59.1 Generalized enlarged lymph nodes (principal) | CPT/HCPCS: 76642 ==

== ENCOUNTER → 2025-09-05 15:14 | Outpatient (REF) | payer OTHER, SELFPAY | LOC: HWRAD 15:14 | PROVIDERS: ATTENDING PHYSICIAN Internal Medicine Hematology & Oncology; FAMILY PHYSICIAN Internal Medicine | DX: R59.1 Generalized enlarged lymph nodes (principal) | CPT/HCPCS: 76536 ==